=== PATIENT | female | born 1945 | race Caucasian/White ===

== ENCOUNTER 2019-03-23 10:29 | Emergency (ER) | payer MEDICARE ==
[2019-03-23 10:47] VITALS: BP 130/84; RESP 18; TEMP 98
[2019-03-23] MEDS ORDERED: IPRATROPIUM-ALBUTEROL 3 ML NEB INHALATION STA (11:00)
--- NOTE | 2019-03-23 11:09 | ED ---
URI HPI - General Chief Complaint: Upper Respiratory Infection Stated Complaint: chest congestion Time Seen by Provider: 03/23/19 10:48 Source: patient, RN notes reviewed Mode of arrival: ambulatory Limitations: no limitations - History of Present Illness Initial Comments: This a 73-year-old female presents emergency Department chief complaint of congestion. Patient states that she's been sick last 2-3 days. Patient states she primary has sinus congestion but does have productive cough especially at nighttime and in the morning. She has no prior lung disease including COPD or asthma. No chest pain or shortness breath this time. Patient has tried some Mucinex [id number]. Patient denies any known fevers or chills denies any headache, dizziness, neck pain or neck stiffness. No sick contacts. - Related Data Previous Rx's Medication Instructions Recorded Amoxicillin/Potassium Clav 1 tab PO Q12HR #20 tab 03/23/19 [Augmentin 875-125 Tablet] Review of Systems ROS Statement: Those systems with pertinent positive or pertinent negative responses have been documented in the HPI. ROS Other: All systems not noted in ROS Statement are negative. Past Medical History Past Medical History: Hypertension History of Any Multi-Drug Resistant Organisms: None Reported Past Surgical History: Hysterectomy Past Psychological History: No Psychological Hx Reported Smoking Status: Never smoker Past Alcohol Use History: None Reported Past Drug Use History: None Reported General Exam Limitations: no limitations General appearance: alert, in no apparent distress Head exam: Present: atraumatic, normocephalic, normal inspection Eye exam: Present: normal appearance, PERRL, EOMI. Absent: scleral icterus, conjunctival injection, periorbital swelling ENT exam: Present: mucous membranes moist, TM's normal bilaterally, normal external ear exam. Absent: normal oropharynx (Postnasal drainage) Neck exam: Present: normal inspection, full ROM. Absent: tenderness, meningismus, lymphadenopathy Respiratory exam: Present: wheezes. Absent: normal lung sounds bilaterally, respiratory distress, rales, rhonchi, stridor Cardiovascular Exam: Present: regular rate, normal rhythm, normal heart sounds. Absent: systolic murmur, diastolic murmur, rubs, gallop, clicks Neurological exam: Present: alert, oriented X3 Skin exam: Present: warm, dry, intact, normal color. Absent: rash Course Vital Signs 03/23/19 10:43 Temperature 98 F Pulse Rate 100 Respiratory 18 Rate Blood Pressure 130/84 O2 Sat by Pulse 100 Oximetry Medical Decision Making - Medical Decision Making 73-year-old female presented for cough congestion chest x-ray does not show any evidence of pneumonia. Patient's we discharged with antibiotics she'll continue [id number] cough and cold medications will follow-up PCP in 24 hours and return for any worsening symptoms. Patient discharged in stable condition. Disposition Clinical Impression: Sinusitis, Bronchitis Disposition: HOME SELF-CARE Condition: Stable Instructions (If sedation given, give patient instructions): Upper Respiratory Infection (ED) Additional Instructions: Please return to the Emergency Department if symptoms worsen or any other concerns. Prescriptions: Amoxicillin/Potassium Clav [Augmentin 875-125 Tablet] 1 tab PO Q12HR #20 tab Is patient prescribed a controlled substance at d/c from ED?: No Referrals: Frandy Muro MD [Primary Care Provider] - 1-2 days Time of Disposition: 11:52
--- NOTE | 2019-03-23 11:40 | XR ---
EXAMINATION TYPE: XR chest 2V DATE OF EXAM: 03/23/2019 COMPARISON: NONE HISTORY: Cough and congestion TECHNIQUE: Frontal and lateral views of the chest are obtained. FINDINGS: There is no focal air space opacity, pleural effusion, or pneumothorax seen. Left basilar atelectasis is seen that is platelike horizontally oriented along the left heart border. The cardiac silhouette size is within normal limits. The osseous structures are intact. Mild multilevel degene rative disc disease of the thoracic spine. IMPRESSION: Left basilar subsegmental atelectasis otherwise no acute cardiopulmonary process.
[2019-03-23] MEDS ORDERED: cefTRIAXone 1,000 MG VIAL (IM USE) IM STA (11:50)
[2019-03-23 11:55] VITALS: PULSE 88
[2019-03-23] MEDS ORDERED: LIDOCAINE 1% INJ 10MG/ML (20 ML MDV) SQ ONE (12:06)
== END 2019-03-23 12:31 | disposition home or self-care (01) ==
LOC: EC 10:29
DX: J40 Bronchitis, not specified as acute or chronic (principal); J32.9 Chronic sinusitis, unspecified; I10 Essential (primary) hypertension
CPT/HCPCS: 94640; 71046; 99283; 96372; J2001; J0696

== ENCOUNTER → 2019-04-06 | Outpatient (CLI) | payer MEDICARE ==
--- NOTE | 2019-04-06 16:37 | BD ---
EXAMINATION TYPE: Axial Bone Density DATE OF EXAM: 04/06/2019 COMPARISON: 01/24/2004 CLINICAL HISTORY: 73-year-old female postmenopausal screening, osteoporosis Height: 62 IN Weight: 134 LBS FRAX RISK QUESTIONS: Secondary Osteoporosis: 3. Menopause before 45: TOTAL HYST AGE 29 RISK FACTORS HISTORY OF: Active: YES Postmenopausal woman: TOTAL HYST AGE 29 Take estrogen and/or progesterone medications: NOT NOW How long: CONTROL 5 YEARS; TOOK HORMONES FROM AGE [age] MEDICATIONS: Osteoporosis Medications: YES Which medication: Actonel How Lon YEARS Additional Medications: CALCIUM, VIT D, ASPIRIN, ALENDRONATE SODIUM, QUINAPRIL, RED YEAST RICE, ALEVE , FISH OIL, VIT E, ATORVASTATIN, FLUCONAZOLE, EXAM MEASUREMENTS: Bone mineral densitometry was performed using the [employer] System. Bone mineral density as measured about the Lumbar spine is: ----- L1-L4(G/cm2): 1.049 T Score Values are as follows: ----- L2: -1.2 ----- L3: -0.9 ----- L4: -1.2 ----- L1-L4: -1.1 Bone mineral density has: Decreased -7.8% since study of: 01/24/2004 Bone mineral density about the R hip (g/cm2): 0.713 Bone mineral density about the L hip (g/cm2): 0.724 T Score values are as follows: -----R Neck: -2.3 -----L Neck: -2.3 -----R Total: -1.3 -----L Total: -1.3 Bone mineral density has: Decreased -8.3% since study of: 01/24/2004 IMPRESSION: Osteopenia (T Score between -2.5 and -1). There is slightly increased risk of fracture and the patient may be considered for treatment. Re-Screen 2-5 years. NOTE: T-SCORE=SD OF THE YOUNG ADULT MEAN.
== END | disposition home or self-care (01) ==
LOC: RADBDWWP 07:16
PROVIDERS: ATTEND Internal Medicine Geriatric Medicine
DX: M85.80 Other specified disorders of bone density and structure, unspecified site (principal)
CPT/HCPCS: 77080

== ENCOUNTER → 2019-06-12 | Outpatient (CLI) | payer MEDICARE ==
--- NOTE | 2019-06-12 13:30 | XR ---
EXAMINATION TYPE: XR lumbar spine 2 or 3V DATE OF EXAM: 06/12/2019 Comparison: None Clinical History: 73-year-old female M54.5 low back pain Findings: Gentle rotary levoconvex curvature. Moderate to severe degenerative disc disease L4-L5 and L5-S1. Hyp ertrophic facet arthropathy mid to lower lumbar spine. Grade 1 anterolisthesis L5-S1. Vertebral body heights are preserved. Impression: 1. Hypertrophic facet arthropathy. Grade 1 anterolisthesis at L5-S1 likely on a degenerative basis. 2. Moderate to severe degenerative disc disease lower lumbar spine.
== END | disposition home or self-care (01) ==
LOC: RADXRMAIN 12:14
PROVIDERS: ATTEND Nurse Practitioner Family
DX: M43.17 Spondylolisthesis, lumbosacral region (principal); M51.36 Other intervertebral disc degeneration, lumbar region; M46.96 Unspecified inflammatory spondylopathy, lumbar region
CPT/HCPCS: 72100

== ENCOUNTER → 2020-12-03 | Outpatient (CLI) | payer MEDICARE ==
--- NOTE | 2020-12-03 12:03 | XR ---
EXAMINATION TYPE: XR Hip Complete RT DATE OF EXAM: 12/03/2020 CLINICAL HISTORY: Hip pain TECHNIQUE: AP and frogleg views of the right hip are obtained. COMPARISON: None. FINDINGS: There is no acute fracture/dislocation evident in the right hip. The joint space in the r ight hip demonstrates mild degenerative spurring, with superolateral joint space loss and subchondral sclerosis/cystic change The overlying soft tissue appears unremarkable. IMPRESSION: There is no acute fracture or dislocation in the right hip.
== END | disposition home or self-care (01) ==
LOC: RADXRMAIN 11:38
PROVIDERS: ATTEND Nurse Practitioner Family
DX: M25.851 Other specified joint disorders, right hip (principal)
CPT/HCPCS: 73502

== ENCOUNTER → 2021-12-21 | Outpatient (CLI) | payer MEDICARE ==
--- NOTE | 2021-12-21 19:11 | BD ---
EXAMINATION TYPE: Axial Bone Density DATE OF EXAM: 12/21/2021 COMPARISON: NONE CLINICAL HISTORY: 76 years year old Female. ICD-10 CODE: M81.0 Osteoporosis Height: 62 Weight: 142 FRAX RISK QUESTIONS: Alcohol (3 or more units per day): NO Family History (Parent hip fracture): NO Glucocorticoids (More than 3mos): NO History of Fracture in Adulthood: NO Secondary Osteoporosis: 1. Type 1 Diabetes: NO 2. Hyperthyroidism: NO 3. Menopause before 45: NO 4. Malnutrition: NO 5. Chronic liver disease: NO Rheumatoid Arthritis: NO Current Tobacco Use: NO RISK FACTORS HISTORY OF: Hip Fracture (Right/Left): NO Spine Fracture: NO History of Wrist Fracture: NO Surgery to Spine/Hip(right/left)/Wrist (right/left): NO Family History of Osteoporosis: NO Active: YES Diet low in dairy products/other sources of calcium: YES Postmenopausal woman: YES Take estrogen and/or progesterone medications: NO Lost more than 2 inches in height since high school: NO Frequent falls: NO Poor Health: NO Hyperparathyroidism: NO Adrenal Insufficiency: NO MEDICATIONS: Prednisone or other steroids: NO Thyroid Medications: NO Osteoporosis Medications: ALENDRONATE WEEKLY How Long: PAST 6 YEARS QUINAPRIL, CHOLESTEROL MEDS, ALENDRONATE, VIT D, CALCIUM, FISH OIL, TUMERIC, MAGNESIUM Additional Medications: EXAM MEASUREMENTS: Bone mineral densitometry was performed using the [employer] System. Bone mineral density as measured about the Lumbar spine is: ----- L1-L4(G/cm2): 1.011 T Score Values are as follows: ----- L1: -1.2 ----- L2: -2.1 ----- L3: -0.6 ----- L4: -1.9 ----- L1-L4: -1.4 Bone mineral density has: decreased 12.6% since study of: 01/24/2004 Bone mineral density about the R hip (g/cm2): 0.703 Bone mineral density about the L hip (g/cm2): 0.707 T Score values are as follows: -----R Neck: -2.4 -----L Neck: -2.4 -----R Total: -1.2 -----L Total: -1.3 Bone mineral density has: decreased 7.3 % since study of: 01/24/2004 FRAX%s: The graph provided illustrates a 18.3% chance for a major osteoporotic fx and a 6.1% chance f or the hips probability for fx in 10 years time. IMPRESSION: Osteopenia (T Score between -2.5 and -1). However, note that measurements are bordering on osteoporos is at both hips. There is slightly increased risk of fracture and the patient may be considered for treatment. Re-Screen 2-5 years. NOTE: T-SCORE=SD OF THE YOUNG ADULT MEAN.
--- NOTE | 2021-12-22 15:24 | MM ---
Reason for Exam: Screening (asymptomatic). Last mammogram was performed 16 year(s) and 2 month(s) ago. Patient History: Menarche at age 11. First Full-Term at age 25. Hysterectomy at age 29. Postmenopausal. Risk Values: Lolita 5 year model risk: 1.9%. NCI Lifetime model risk: 3.4%. Prior Study Comparison: 01/13/2004 Bilateral Diagnostic Mammogram, [facility]. 01/15/2005 Bilateral Screening Mammogram, [facility]. 11/12/2005 Bilateral Diagnostic Mammogram, [facility]. Tissue Density: The breast tissue is heterogeneously dense. This may lower the sensitivity of mammography. Findings: Analyzed By CAD. There is no suspicious group of microcalcifications or new suspicious mass in either breast. Overall Assessment: Negative, BI-RAD 1 Management: Screening Mammogram of both breasts in 1 year. A clinical breast exam by your physician is recommended on an annual basis and results should be correlated with mammographic findings. Electronically signed and approved by: Calixto Huff M.D. Radiologis
== END | disposition home or self-care (01) ==
LOC: RADBDWWP 14:03
PROVIDERS: ATTEND Internal Medicine Geriatric Medicine
DX: Z12.31 Encounter for screening mammogram for malignant neoplasm of breast (principal); M85.88 Other specified disorders of bone density and structure, other site; M85.851 Other specified disorders of bone density and structure, right thigh; M85.852 Other specified disorders of bone density and structure, left thigh; Z78.0 Asymptomatic menopausal state
CPT/HCPCS: 77063; 77067; 77080

== ENCOUNTER → 2023-05-09 | Outpatient (CLI) | payer MEDICARE ==
--- NOTE | 2023-05-09 18:57 | MR ---
EXAMINATION TYPE: MR brain wo/w con DATE OF EXAM: 05/09/2023 COMPARISON: HISTORY: Memory loss CONTRAST: Performed utilizing 6.5 mL intravenous Gadobutrol gadolinium contrast. TECHNIQUE: Multiplanar, multiecho imaging on a 3.0 Vanita magnet is performed through the brain. Stud y is performed within 24 hours of arrival to the hospital. The craniovertebral junction is normal. The pituitary is normal. Diffusion-weighted imaging is performed. No abnormal hyperintensity is present to suggest an acute i ntracranial infarct or acute ischemic change. There are patchy to confluent periventricular white matter ischemic type changes. Some signal changes within the brainstem. No acute signal changes evident . Ventricles and sulci are somewhat prominent for the patient age. No abnormal enhancement is identified. IMPRESSION: 1. Atrophy with chronic appearing periventricular white matter ischemic-type changes.
== END | disposition home or self-care (01) ==
LOC: RADMRIMAIN 15:48
PROVIDERS: ATTEND Internal Medicine Geriatric Medicine
DX: G31.9 Degenerative disease of nervous system, unspecified (principal); G93.89 Other specified disorders of brain
CPT/HCPCS: 70553; A9585

== ENCOUNTER 2024-09-26 09:24 | Inpatient (IN) | payer MEDICARE ==
[2024-09-26 09:31] LABS: Glucose,Whole Blood 94 mg/dL (70-110)
--- NOTE | 2024-09-26 09:31 | ED ---
General Adult HPI - General Stated complaint: stroke-like symptoms Time Seen by Provider: 09/26/24 09:26 Source: patient, EMS, RN notes reviewed Mode of arrival: EMS Limitations: no limitations - History of Present Illness Initial comments: Patient is an 79-year-old female present to the emergency department with concern for left-sided weakness. Onset of symptoms was just before 9 AM. Patient noticed left leg weakness when she tried to get up and walk. Patient was already up in the morning and doing fine prior to this. No confusion. EMS also has concern for left facial and arm weakness. No history of similar symptoms previously. No speech problems. - Related Data Previous Rx's Medication Instructions Recorded Amoxicillin/Potassium Clav 1 tab PO Q12HR #20 tab 03/23/19 [Augmentin 875-125 Tablet] Allergies Allergy/AdvReac Type Severity Reaction Status Date / Time No Known Allergies Allergy Verified 03/23/19 11:51 Review of Systems ROS Statement: Those systems with pertinent positive or pertinent negative responses have been documented in the HPI. ROS Other: All systems not noted in ROS Statement are negative. Constitutional: Denies: fever Eyes: Denies: eye pain ENT: Denies: ear pain Respiratory: Denies: cough Cardiovascular: Denies: chest pain Endocrine: Denies: fatigue Gastrointestinal: Denies: abdominal pain Genitourinary: Denies: dysuria Musculoskeletal: Denies: back pain Past Medical History Past Medical History: Hypertension History of Any Multi-Drug Resistant Organisms: None Reported Past Surgical History: Hysterectomy Past Psychological History: No Psychological Hx Reported Past Alcohol Use History: None Reported Past Drug Use History: None Reported General Exam Limitations: no limitations General appearance: alert, in no apparent distress Head exam: Present: atraumatic Eye exam: Present: normal appearance, PERRL, EOMI ENT exam: Present: normal oropharynx Neck exam: Present: normal inspection Respiratory exam: Present: normal lung sounds bilaterally Cardiovascular Exam: Present: regular rate, normal rhythm GI/Abdominal exam: Present: soft. Absent: tenderness Extremities exam: Present: normal inspection. Absent: pedal edema, calf tenderness Neurological exam: Present: alert Expanded Neurological exam: Present: protecting the airway Patient oriented to: Present: person, place, time Cranial nerves: EOM's Intact: Normal, Facial Sensation: Normal, Facial Palsy with Forehead Movement: Abnormal Left (Left facial weakness that does not affect the forehead) Sensory exam: Upper Extremity Light Touch: Abnormal Left, Lower Extremity Light Touch: Normal Motor strength exam: RUE: 5, LUE: 4, RLE: 5, LLE: 3 Eye Response: (4) open spontaneously Motor Response: (6) obeys commands Verbal Response: (5) oriented Psychiatric exam: Present: normal affect, normal mood Skin exam: Present: normal color Course Vital Signs 09/26/24 09/26/24 09/26/24 09:40 09:45 09:52 Temperature 97.7 F Pulse Rate 78 Respiratory 16 Rate Blood Pressure 193/92 198/104 186/97 O2 Sat by Pulse 97 Oximetry 09/26/24 09/26/24 10:00 10:06 Temperature Pulse Rate Respiratory Rate Blood Pressure 137/80 177/90 O2 Sat by Pulse Oximetry EKG Findings - EKG Results: EKG: interpreted by ERMD, sinus rhythm, normal axis, normal QRS, normal ST/T Medical Decision Making - Medical Decision Making Code thrombolytic was called. NIH 11 reported by nursing staff 9:40 AM Case was discussed with Dr. Bowser who does agree the patient is a candidate for tenecteplase. He does recommend confirming patient not on a blood thinner and labetalol then Cardene if needed to get blood pressure under 180/90. At this time blood pressure is 198/104 and patient will receive labetalol. Long discussion had with patient including risk and benefits and patient would like to receive tenecteplase. Patient understands risks pacifically risks of bleeding making symptoms worse and potentially or worse disability. Patient confirms she is not on blood thinners. CT brain still pending. 9:43 AM. Call from radiologist and CT reviewed with him. No acute abnormality. Patient is a candidate to receive tenecteplase at this time however we do need to recheck blood pressure first. 09:57 of labetalol patient blood pressure 167/80. Tenecteplase will be provided at this time. Was pt. sent in by a medical professional or institution (, PA, INSURANCE ADVISER, urgent care, hospital, or alf...) When possible be specific @ -No Did you speak to anyone other than the patient for history (EMS, parent, family, police, friend...)? What history was obtained from this source @ -EMS provides history including onset of symptoms Did you review nursing and triage notes (agree or disagree)? Why? @ -I reviewed and agree with nursing and triage notes Were old charts reviewed (outside hosp., previous admission, EMS record, old EKG, old radiological studies, urgent care reports/EKG's, alf records)? Report findings @ -No old charts were reviewed Differential Diagnosis (chest pain, altered mental status, abdominal pain women, abdominal pain men, vaginal bleeding, weakness, fever, dyspnea, syncope, headache, dizziness, GI bleed, back pain, seizure, CVA, palpatations, mental health, musculoskeletal)? @ -Differential Weakness: Hypoglycemia, shock, sepsis, hyponatremia, anemia, infection, [place], ETOH, adverse medicine reaction, overdose, stroke, this is not meant to be an all-inclusive list. EKG interpreted by me (3pts min.). @ -As above X-rays interpreted by me (1pt min.). @ -Chest x-ray without acute abnormality CT interpreted by me (1pt min.). @ -CT brain without acute abnormality U/S interpreted by me (1pt. min.). @ -None done What testing was considered but not performed or refused? (CT, X-rays, U/S, labs)? Why? @ -None What meds were considered but not given or refused? Why? @ -None Did you discuss the management of the patient with other professionals (professionals i.e. , PA, INSURANCE ADVISER, lab, RT, psych nurse, clinical social worker, loom mechanic, teacher, patient transport officer, child welfare caseworker)? Give summary @ -See above, case also discussed with Dr. Locke who will admit covering Dr. Bernal Was smoking cessation discussed for >3mins.? @ -No Was critical care preformed (if so, how long)? @ -45 minutes critical care time Were there social determinants of health that impacted care today? How? (Homelessness, low income, unemployed, alcoholism, drug addiction, transportation, low edu. Level, literacy, decrease access to med. care, [place] [facility], rehab)? @ -No Was there de-escalation of care discussed even if they declined (Discuss DNR or withdrawal of care, Hospice)? DNR status @ -No What co-morbidities impacted this encounter? (DM, HTN, Smoking, COPD, CAD, Cancer, CVA, ARF, Chemo, Hep., AIDS, mental health diagnosis, sleep apnea, morbid obesity)? @ -Hypertension Was patient admitted / discharged? Hospital course, mention meds given and rout e, prescriptions, significant lab abnormalities, going to OR and other pertinent info. @ -Patient presents with acute stroke. Patient given tenecteplase. Head CT unremarkable. Patient will be admitted with ICU. Dr. Muhammad also paged for consult. Patient reevaluated and unchanged. Patient is updated. Admission orders written Undiagnosed new problem with uncertain prognosis? @ -No Drug Therapy requiring intensive monitoring for toxicity (Heparin, Nitro, Insulin, Cardizem)? @ -Tenecteplase Were any procedures done? @ -No Diagnosis/symptom? @ -CVA Acute, or Chronic, or Acute on Chronic? @ -Acute Uncomplicated (without systemic symptoms) or Complicated (systemic symptoms)? @ -Default Side effects of treatment? @ -No Exacerbation, Progression, or Severe Exacerbation? @ -No Poses a threat to life or bodily function? How? (Chest pain, [place], [place], pneumonia, PE, COPD, DKA, ARF, appy, cholecystitis, CVA, Diverticulitis, Homicidal, Suicidal, threat to staff... and all critical care pts) @ -Threat to neurological function - Lab Data Result diagrams: 09/26/24 09:51 Lab Results 09/26/24 09/26/24 Range/Units 09:29 09:51 WBC 6.78 (4.50-10.00) 10*3/uL RBC 3.95 L (4.10-5.20) 10*6/uL Hgb 12.4 (12.0-15.0) g/dL Hct 37.5 (37.2-46.3) % MCV 94.9 (80.0-97.0) fL MCH 31.4 (27.0-32.0) pg MCHC 33.1 (32.0-37.0) g/dL Plt Count 237 (140-440) 10*3/uL MPV 10.4 (9.5-12.2) fL Immature Gran % (Auto) 0.3 % Neutrophils % 62.7 % Lymphocytes % 25.2 % Monocytes % 9.9 % Eosinophils % 1.3 % Basophils % 0.6 % Immature Gran # 0.02 (0.00-0.04) 10*3/uL Neutrophils # 4.25 (1.80-7.70) 10*3/uL Lymphocytes # 1.71 (0.90-5.00) 10*3/uL Monocytes # 0.67 (0.20-1.00) 10*3/uL Eosinophils # 0.09 (0.04-0.35) 10*3/uL Basophils # 0.04 (0.00-0.10) 10*3/uL POC Glucose (mg/dL) 94 (70-110) mg/dL POC Glu Trimming Inspector ID Baltazar July Critical Care Time Critical Care Time: Yes Disposition Clinical Impression: Cerebrovascular accident (CVA) Disposition: ADMITTED IP TO THIS [facility] Condition: Critical Is patient prescribed a controlled substance at d/c from ED?: No Referrals: Frandy Muro MD [Primary Care Provider] - 1-2 days Time of Disposition: 10:19
--- NOTE | 2024-09-26 09:46 | CT ---
EXAMINATION TYPE: CT brain wo con DATE OF EXAM: 09/26/2024 9:38 AM COMPARISON: None. CLINICAL INDICATION: Female, 79 years old with history of Neuro deficit, acute, stroke suspected, str mayela TECHNIQUE: Brain: Axial CT images of the brain were obtained with coronal and sagittal reformats created and rev iewed. Contrast used: None. Oral contrast used: None. CT DLP: 1102.2 mGycm, Automated exposure control for dose reduction was used. FINDINGS: Brain: Extra-axial spaces: No abnormal extra-axial fluid collections. Ventricular system: Dilatation in proportion to cerebral atrophy. Cerebral parenchyma: Cerebral atrophy. No acute intraparenchymal hemorrhage or mass effect. The sandoval -white junction is well differentiated. Scattered hypoattenuating areas are seen within the white mat ter. Cerebellum: Unremarkable. Mass effect: No evidence of midline shift. Intracranial vasculature: Atherosclerotic calcifications of the intracranial vessels. Soft tissues: Normal. Calvarium/osseous structures: No depressed skull fracture. Paranasal sinuses and mastoid air cells: Mild scattered paranasal sinus disease. Visualized orbits: Orbital contents are intact. IMPRESSION: 1. No acute intracranial process. 2. Nonspecific white matter changes, likely secondary to chronic small vessel ischemic disease. Findings communicated to Rafal Mckeon DO on 09/26/2024 9:[address] Jaylen Wu. [facility], , 09/26/2024 9:43 AM
[2024-09-26] MEDS: LABETALOL 5 MG/ML VIAL MDV IVP STA (09:50)
[2024-09-26 10:01] LABS: Basophils # (A) 0.04 10*3/uL (0.00-0.10); Basophils % (A) 0.6 %; Eosinophils # (A) 0.09 10*3/uL (0.04-0.35); Eosinophils % (A) 1.3 %; HCT 37.5 % (37.2-46.3); HGB 12.4 g/dL (12.0-15.0); Lymphocytes # (A) 1.71 10*3/uL (0.90-5.00); Lymphocytes % (A) 25.2 %; MCH 31.4 pg (27.0-32.0); MCHC 33.1 g/dL (32.0-37.0); MCV 94.9 fL (80.0-97.0); Mean Platelet Volume 10.4 fL (9.5-12.2); Monocytes # (A) 0.67 10*3/uL (0.20-1.00); Monocytes % (A) 9.9 %; Neutrophils # (A) 4.25 10*3/uL (1.80-7.70); Neutrophils % (A) 62.7 %; Platelet Count 237 10*3/uL (140-440); RBC 3.95 10*6/uL (4.10-5.20); RDW 12.9 % (11.5-14.5); WBC 6.78 10*3/uL (4.50-10.00)
[2024-09-26] MEDS: T.ENECTEPLASE 5 MG/ML VIAL IVP STA (10:02)
--- NOTE | 2024-09-26 10:17 | CT ---
EXAMINATION TYPE: CT angio head neck DATE OF EXAM: 09/26/2024 9:53 AM COMPARISON: CT brain. CLINICAL INDICATION: Female, 79 years old with history of Neuro deficit, acute, stroke suspected; PHH , stroke TECHNIQUE: Axially acquired helical CT angiogram of the head and neck was obtained with contrast. Axi al images are supplemented with 3D reconstructions and MIP images which were post-processed at an in dependent workstation. NASCET criteria used. Contrast used:65 mL of Isovue 370 with IV Contrast, Oral contrast used: None. CT DLP: 304.4 mGycm, Automated exposure control for dose reduction was used. FINDINGS: CTA HEAD: No evidence of acute intracranial hemorrhage, mass effect, or midline shift. The ventricles, sulci, a nd cisterns are unremarkable. Vertebral arteries: The vertebral arteries are patent. Vertebral artery dominance: Codominant Basilar artery: The basilar artery is intact. The basilar artery bifurcation is normal. Internal Carotid arteries: The cervical, petrous, cavernous and supraclinoid segments are normal. CORY: Patent with no evidence of aneurysm. ACOM: Present without evidence of aneurysm. MCA: Patent with no evidence of aneurysm. A/C TECHNICIAN: Patent with no evidence of aneurysm. PCOM: Hypoplastic bilaterally. Dural sinuses: Patent. CTA NECK: Right Carotid System: The common carotid and external carotid arteries are patent. There is less than 25% stenosis at the c arotid bifurcation secondary to calcified/noncalcified plaque. The rest of the internal carotid arter y is patent. Left Carotid System: The common carotid artery and external carotid artery are patent. The carotid bifurcation demonstrate s no evidence of hemodynamically significant stenosis. The remaining portions of the internal carotid artery demonstrate normal size without significant narrowing. Vertebral arteries are patent without evidence hemodynamically significant stenosis. There is a three-vessel aortic arch. The origins of the great vessels are patent. No evidence of hemo dynamically significant stenosis. Upper thorax: 12 mm right thyroid nodule. IMPRESSION: 1. No evidence of dissection of the cervical internal carotid arteries or vertebral arteries. 2. No any evidence of significant stenosis at the carotid bifurcations. 3. No evidence of intracranial high-grade stenosis or intracranial aneurysm. [facility], , 09/26/2024 10:15 AM
[2024-09-26 10:22] LABS: ALT 13 U/L (4-34); AST 18 U/L (14-36); African American GFR (CKD) 83 (>60 ml/min/1.73 sqM); Albumin 3.8 g/dL (3.5-5.0); Alkaline Phosphatase 47 U/L (38-126); Anion Gap 7 mmol/L; Blood Urea Nitrogen 27 mg/dL (7-17); Calcium 8.8 mg/dL (8.4-10.2); Carbon Dioxide 23 mmol/L (22-30); Chloride 108 mmol/L (98-107); Creatine Kinase 50 U/L (30-135); Glucose 102 mg/dL (74-99); Non-African American GFR(CKD) 72 (>60 ml/min/1.73 sqM); Potassium 3.9 mmol/L (3.5-5.1); Sodium 138 mmol/L (137-145); Total Bilirubin 0.6 mg/dL (0.2-1.3); Total Protein 5.8 g/dL (6.3-8.2)
--- NOTE | 2024-09-26 10:26 | XR ---
EXAMINATION TYPE: XR chest 1V portable DATE OF EXAM: 09/26/2024 10:12 AM COMPARISON: Chest radiographs from 03/23/2019 CLINICAL INDICATION: Female, 79 years old with history of altered mental status; [facility] TECHNIQUE: XR chest 1V portable Frontal view of the chest. FINDINGS: Lungs/Pleura: There is no evidence of pleural effusion, focal consolidation, or pneumothorax. Pulmonary vascularity: Unremarkable. Heart/mediastinum: Cardiomediastinal silhouette is unremarkable. Musculoskeletal: No acute osseous pathology. Other findings: None IMPRESSION: No acute cardiopulmonary disease/process. [facility], , 09/26/2024 10:23 AM
[2024-09-26 10:27] LABS: Partial Thromboplastin Time 22.6 sec (22.0-30.0); Prothrombin Time 11.4 sec (10.0-12.5)
--- NOTE | 2024-09-26 12:00 | P.HPIM ---
History of Present Illness H&P Date: 08/29/75 this is a pleasant 79 yo female with past medical history of multiple medical problems as below Presents because of acute left-sided weakness and possible left facial drop in the emergency room. Her legs was more weak than the left arm, she can barely move her leg of her bed Code stroke was called and patient received tPA in the emergency room. This followed by improvement in her weakness. Currently denies any headache or dizziness no chest pain or dyspnea no GI/ symptom She denies smoking alcohol or illicit drugs Hemodynamically stable Labs including CV CBC and BMP were unremarkable. Liver enzymes normal. Blood pressure slightly elevated 177/90 CT of the brain is negative for acute process chest x-ray is showing no acute process. Review of Systems Review of systems CONSTITUTIONAL: No fever, no malaise, no fatigue. HEENT: No recent visual problems or hearing problems. Denied any sore throat. CARDIOVASCULAR: No orthopnea, PND, no palpitations, no syncope. PULMONARY: No shortness of breath, no cough, no hemoptysis. GASTROINTESTINAL: No diarrhea, no nausea, no vomiting, no abdominal pain. Normoactive bowel sounds. NEUROLOGICAL: No headaches, no weakness, no numbness. HEMATOLOGICAL: Denies any bleeding or petechiae. GENITOURINARY: Denies any burning micturition, frequency, or urgency. MUSCULOSKELETAL/RHEUMATOLOGICAL: Denies any joint pain, swelling, or any muscle pain. ENDOCRINE: Denies any polyuria or polydipsia. Past Medical History Past Medical History: Hypertension History of Any Multi-Drug Resistant Organisms: None Reported Past Surgical History: Hysterectomy Past Psychological History: No Psychological Hx Reported Past Alcohol Use History: None Reported Past Drug Use History: None Reported Medications and Allergies Home Medications Medication Instructions Recorded Confirmed Type Alendronate Sodium 70 mg PO MO 09/26/24 09/26/24 History Ascorbic Acid [Vitamin C] 1,000 mg PO DAILY 09/26/24 09/26/24 History Aspirin EC [Ecotrin Low Dose] 81 mg PO HS 09/26/24 09/26/24 History Atorvastatin [Lipitor] 10 mg PO DAILY 09/26/24 09/26/24 History Cholecalciferol (Vitamin D3) 50 mcg PO DAILY 09/26/24 09/26/24 History [Vitamin D3 (50 Mcg = 2000 Iu)] Cyanocobalamin (Vitamin B-12) 1,000 mcg PO DAILY 09/26/24 09/26/24 History [Vitamin B-12] Magnesium 250 mg PO DAILY 09/26/24 09/26/24 History Memantine [Namenda] 5 mg PO DAILY 09/26/24 09/26/24 History Naproxen Sodium [Aleve] 220 mg PO HS 09/26/24 09/26/24 History Bernard-3/Dha/Epa/Fish Oil [Fish Oil 1 cap PO DAILY 09/26/24 09/26/24 History 1,000 mg Softgel] Red Yeast Rice 600 mg PO DAILY 09/26/24 09/26/24 History Rosuvastatin [Crestor] 10 mg PO DAILY 09/26/24 09/26/24 History Vitamin E (Dl,Tocopheryl Acet) 400 unit PO DAILY 09/26/24 09/26/24 History [Vitamin E (400 Iu = 180 mg)] lisinopriL [Zestril] 20 mg PO BID 09/26/24 09/26/24 History traZODone HCL [Desyrel] 50 mg PO HS 09/26/24 09/26/24 History Allergies Allergy/AdvReac Type Severity Reaction Status Date / Time No Known Allergies Allergy Verified 09/26/24 11:03 Physical Exam Vitals: Vital Signs Temp Pulse Resp BP Pulse Ox 09/26/24 11:26 60 18 195/98 99 09/26/24 10:45 55 L 10 L 162/94 98 09/26/24 10:30 61 25 H 177/72 90 L 09/26/24 10:15 57 L 30 H 177/90 96 09/26/24 10:06 177/90 09/26/24 10:00 67 167/80 98 09/26/24 09:52 186/97 09/26/24 09:45 97.7 F 78 16 198/104 97 09/26/24 09:40 193/92 Intake and Output 09/25/24 09/26/24 09/26/24 22:59 06:59 14:59 Other: Weight 54.431 kg GENERAL: The patient is alert and oriented x3, not in any acute distress. Well developed, well nourished. HEENT: Pupils are round and equally reacting to light. EOMI. No scleral icterus. No conjunctival pallor. Normocephalic, atraumatic. No pharyngeal erythema. No thyromegaly. CARDIOVASCULAR: S1 and S2 present. No murmurs, rubs, or gallops. PULMONARY: Chest is clear to auscultation, no wheezing , no crackles. ABDOMEN: Soft, nontender, nondistended, normoactive bowel sounds. No palpable organomegaly. MUSCULOSKELETAL: No joint swelling or deformity. EXTREMITIES: No cyanosis, clubbing, or pedal edema. -NEUROLOGICAL: Shala cranial nerves are grossly intact,. Mild Left side weakness SKIN: No rashes. no petechiae. Results CBC & Chem 7: 09/26/24 09:51 09/26/24 09:51 Labs: Abnormal Lab Results - Last 24 Hours (Table) 09/26/24 09/26/24 Range/Units 09:51 09:51 RBC 3.95 L (4.10-5.20) 10*6/uL Chloride 108 H (98-107) mmol/L BUN 27 H (7-17) mg/dL Glucose 102 H (74-99) mg/dL Total Protein 5.8 L (6.3-8.2) g/dL Assessment and Plan Assessment: Acute stroke with acute left hemiparesis and left facial droop s/p tPA, showing improvement Permissive hypertension Plan: Continue with Lipitor Hold anticoagulation because received tPA Admit to the ICU for close monitoring Neurology team consult and critical care team consult Continue with labetalol. Labs and medication were reviewed.. Continue same treatment. Continue with symptomatic treatment. Resume home medication. Monitor labs and vitals. DVT and GI prophylaxis. Further recommendations as per clinical course of the patient DVT prophylaxis: Mechanical GI Prophylaxis: Pepcid PT/OT: Pending Prognosis is guarded
[2024-09-26] MEDS: niCARdipine 20 MG in SODIUM CHLORIDE 0.9% 192 ML IV SCH (12:02)
--- NOTE | 2024-09-26 12:15 | P.CNNES ---
History of Present Illness Consult date: 09/26/24 Reason for Consult: Ischemic stroke History of Present Illness: The patient is an 79-year-old female who is seen in neurologic consultation on September 26, 2024, in collaboration with Bethany Awan, via teleneurology. History is obtained from the patient as well as review of the chart. Patient reports that she had sudden onset of left lower extremity weakness, this morning, she said she was fine when she got out of bed in the morning however, later in the morning she had sudden onset of left lower extremity weakness. She also noted weakness in her left upper extremity as well as facial weakness. The patient denies headache. She reports numbness and tingling primarily involving her arm and leg however with speaking to less, patient also was noting numbness in her face. According to the nurse who was present at the bedside, prior to receiving TNK, patient also had some slurring of her speech. The patient's initial NIH stroke scale score was reported to be 11. CT scan of the brain was performed in the emergency department. There is no reported evidence of acute hemorrhage or infarct. CT angiogram of the head and neck is negative for acute, stenosis and large vessel occlusion. The patient denies a history of stroke or TIA. She does reportedly take aspirin 81 mg daily. She also takes a statin. Past Medical History Past Medical History: Hypertension History of Any Multi-Drug Resistant Organisms: None Reported Past Surgical History: Hysterectomy Past Psychological History: No Psychological Hx Reported Past Alcohol Use History: None Reported Past Drug Use History: None Reported Medications and Allergies Home Medications Medication Instructions Recorded Confirmed Type Alendronate Sodium 70 mg PO MO 09/26/24 09/26/24 History Ascorbic Acid [Vitamin C] 1,000 mg PO DAILY 09/26/24 09/26/24 History Aspirin EC [Ecotrin Low Dose] 81 mg PO HS 09/26/24 09/26/24 History Atorvastatin [Lipitor] 10 mg PO DAILY 09/26/24 09/26/24 History Cholecalciferol (Vitamin D3) 50 mcg PO DAILY 09/26/24 09/26/24 History [Vitamin D3 (50 Mcg = 2000 Iu)] Cyanocobalamin (Vitamin B-12) 1,000 mcg PO DAILY 09/26/24 09/26/24 History [Vitamin B-12] Magnesium 250 mg PO DAILY 09/26/24 09/26/24 History Memantine [Namenda] 5 mg PO DAILY 09/26/24 09/26/24 History Naproxen Sodium [Aleve] 220 mg PO HS 09/26/24 09/26/24 History Elmer-3/Dha/Epa/Fish Oil [Fish Oil 1 cap PO DAILY 09/26/24 09/26/24 History 1,000 mg Softgel] Red Yeast Rice 600 mg PO DAILY 09/26/24 09/26/24 History Rosuvastatin [Crestor] 10 mg PO DAILY 09/26/24 09/26/24 History Vitamin E (Dl,Tocopheryl Acet) 400 unit PO DAILY 09/26/24 09/26/24 History [Vitamin E (400 Iu = 180 mg)] lisinopriL [Zestril] 20 mg PO BID 09/26/24 09/26/24 History traZODone HCL [Desyrel] 50 mg PO HS 09/26/24 09/26/24 History Allergies Allergy/AdvReac Type Severity Reaction Status Date / Time No Known Allergies Allergy Verified 09/26/24 11:03 Physical Examination - Vital Signs Vital Signs: Vital Signs Temp Pulse Resp BP Pulse Ox 09/26/24 11:26 60 18 195/98 99 09/26/24 10:45 55 L 10 L 162/94 98 09/26/24 10:30 61 25 H 177/72 90 L 09/26/24 10:15 57 L 30 H 177/90 96 09/26/24 10:06 177/90 09/26/24 10:00 67 167/80 98 09/26/24 09:52 186/97 09/26/24 09:45 97.7 F 78 16 198/104 97 09/26/24 09:40 193/92 Intake and Output 09/25/24 09/26/24 09/26/24 22:59 06:59 14:59 Other: Weight 54.431 kg General: The patient is well-nourished, well-developed and in no acute distress HEENT: Head is atraumatic, normocephalic. Fundus not visualized. There is no scleral icterus. Mucous membranes are moist. Neck: Supple without carotid bruits Heart: Regular rate and rhythm Lungs: There is no cough or shortness of breath Extremities: Without edema Neurological examination Mental status: The patient is awake, alert and oriented x 3. Speech is clear. There is no dysarthria or aphasia. Patient is able to accurately name objects and repeat phrases. Cranial nerves: Pupils are equal at 2 mm and reactive. Visual camacho are full to confrontation. Extraocular movements are intact. There is nystagmus on right lateral gaze. Facial sensation is diminished in the left V2 distribution. There is facial droop.. Hearing is grossly intact. Uvula and palate are midline. Shoulder shrug is symmetric. Tongue protrudes midline. Motor: Strength is 5/5 in the right upper and lower extremities. Left upper extremity strength 4/5. Left hip flexor 3/5. Left ankle plantar and dorsi flexors 4/5. Sensory: There is tenderness sensation to light touch involving the left upper and lower extremities. There is no extinction with double simultaneous stimulation. Deep tendon reflexes: 3+/4+ in the bilateral upper extremities and 2+/4+ at the knees. Coordination: [id number] and rapid alternating movements are intact on the right. There is left-sided slowing of rapid alternating movements as well as ataxia with [id number] testing. There is no pronator drift. [id number]-[id number] testing is diminished on the left, secondary to weakness. Gait: Not assessed Results CT scan of the brain imaging has been personally viewed. I agree with the radiology report. - Laboratory Findings CBC and BMP: 09/26/24 09:51 09/26/24 09:51 Abnormal Lab Findings: Abnormal Labs 09/26/24 09/26/24 09:51 09:51 RBC 3.95 L Chloride 108 H BUN 27 H Glucose 102 H Total Protein 5.8 L Assessment and Plan Assessment: 1. 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 History of hypertension 3. History of dementia, on Namenda Plan: 1. Stroke order set for status post TNK patient's has been entered by the primary team, including a repeat CT scan of the brain, 24 hours following TNK 2. MRI of the brain has been ordered to further evaluate for ischemia 3. Antiplatelet agents should not be started, including aspirin, until 24 hours after TNK and head CT negative for hemorrhage 4. After 24 hours, the patient should be on dual antiplatelet therapy consisting of aspirin 81 mg and Plavix 75 mg daily, for 21 days, thereafter the patient should be continued on Plavix 5. High intensity statin should be initiated 6. Monitor for signs of depression, as the patient is already very tearful and depression is, and right hemispheric strokes Thank you for allowing us to participate in care of this patient Time with Patient: Greater than 30 (65 minutes were spent caring for this patient today including, obtaining history, examining the patient, reviewing imaging, chart documentation, labs, placing orders and creating this note)
--- NOTE | 2024-09-26 13:01 | P.CNPUL ---
History of Present Illness Consult date: 09/26/24 Requesting physician: Qamar Morfin Reason for consult: other (ICU management) Chief complaint: Left lower extremity weakness and left facial numbness History of present illness: This is an 79-year-old female known history of hypertension, dyslipidemia, patient was brought into the ER this morning with sudden onset of left lower extremity weakness, went on to develop left facial numbness and left upper extremity weakness but she had no headache, no nausea no vomiting, she felt numbness and tingling in her left arm and her left leg. Patient was seen in the ER and she was felt to have an acute ischemic stroke. Workup was basically nondiagnostic and there was no evidence of hemorrhage or infarct on the CT of the brain. Her CT angiogram of the head and neck was negative for acute sten osis or large vessel occlusion. Patient received TNK, and as per protocol I was asked to see the patient to admit the patient to the ICU. By the time I saw the patient, she was already feeling better her weakness in the left upper extremity and left lower extremity was getting much better and her numbness in the left facial numbness was also improved. Patient has no neurological symptoms during my evaluation. WBC count 6.7 hemoglobin 12.4 electrolytes are normal renal profile is normal. Review of Systems CONSTITUTIONAL: Negative HEENT: Left facial numbness CARDIOVASCULAR: No orthopnea, PND, no palpitations, no syncope. PULMONARY: Negative GASTROINTESTINAL: No diarrhea, no nausea, no vomiting, no abdominal pain. Normoactive bowel sounds. . HEMATOLOGICAL: Denies any bleeding or petechiae. GENITOURINARY: Denies any burning micturition, frequency, or urgency. MUSCULOSKELETAL/RHEUMATOLOGICAL: Denies any joint pain, swelling, or any muscle pain. ENDOCRINE: Denies any polyuria or polydipsia. Neurologic: As noted in HPI Past Medical History Past Medical History: Hypertension History of Any Multi-Drug Resistant Organisms: None Reported Past Surgical History: Hysterectomy Past Psychological History: No Psychological Hx Reported Past Alcohol Use History: None Reported Past Drug Use History: None Reported Medications and Allergies Home Medications Medication Instructions Recorded Confirmed Type Alendronate Sodium 70 mg PO MO 09/26/24 09/26/24 History Ascorbic Acid [Vitamin C] 1,000 mg PO DAILY 09/26/24 09/26/24 History Aspirin EC [Ecotrin Low Dose] 81 mg PO HS 09/26/24 09/26/24 History Atorvastatin [Lipitor] 10 mg PO DAILY 09/26/24 09/26/24 History Cholecalciferol (Vitamin D3) 50 mcg PO DAILY 09/26/24 09/26/24 History [Vitamin D3 (50 Mcg = 2000 Iu)] Cyanocobalamin (Vitamin B-12) 1,000 mcg PO DAILY 09/26/24 09/26/24 History [Vitamin B-12] Magnesium 250 mg PO DAILY 09/26/24 09/26/24 History Memantine [Namenda] 5 mg PO DAILY 09/26/24 09/26/24 History Naproxen Sodium [Aleve] 220 mg PO HS 09/26/24 09/26/24 History Bushnell-3/Dha/Epa/Fish Oil [Fish Oil 1 cap PO DAILY 09/26/24 09/26/24 History 1,000 mg Softgel] Red Yeast Rice 600 mg PO DAILY 09/26/24 09/26/24 History Rosuvastatin [Crestor] 10 mg PO DAILY 09/26/24 09/26/24 History Vitamin E (Dl,Tocopheryl Acet) 400 unit PO DAILY 09/26/24 09/26/24 History [Vitamin E (400 Iu = 180 mg)] lisinopriL [Zestril] 20 mg PO BID 09/26/24 09/26/24 History traZODone HCL [Desyrel] 50 mg PO HS 09/26/24 09/26/24 History Allergies Allergy/AdvReac Type Severity Reaction Status Date / Time No Known Allergies Allergy Verified 09/26/24 11:03 Physical Exam Vitals: Vital Signs Temp Pulse Resp BP Pulse Ox 09/26/24 11:48 82 189/97 09/26/24 11:37 60 189/93 98 09/26/24 11:26 60 18 195/98 99 09/26/24 10:45 55 L 10 L 162/94 98 09/26/24 10:30 61 25 H 177/72 90 L 09/26/24 10:15 57 L 30 H 177/90 96 09/26/24 10:06 177/90 09/26/24 10:00 67 167/80 98 09/26/24 09:52 186/97 09/26/24 09:45 97.7 F 78 16 198/104 97 09/26/24 09:40 193/92 Intake and Output 09/25/24 09/26/24 09/26/24 22:59 06:59 14:59 Intake Total 35 Balance 35 Intake: Intake, IV Titration 35 Amount niCARdipine 20 mg In 35 Sodium Chloride 0.9% 192 ml @ 5 MG/HR 50 mls/hr IV .Q4H [facility] Rx#:[id number] Other: Weight 54.431 kg GENERAL: Revealed a very pleasant 79-year-old female in no distress on room air not in any distress HEENT: Pupils are round and equally reacting to light. EOMI. No scleral icterus. No conjunctival pallor. Normocephalic, atraumatic. No pharyngeal erythema. No thyromegaly. CARDIOVASCULAR: Normal S1-S2, no S3 gallop. PULMONARY: Clear bilaterally no crackles rhonchi or wheezes ABDOMEN: Soft, nontender, nondistended, normoactive bowel sounds. No palpable organomegaly. MUSCULOSKELETAL: No joint swelling or deformity. EXTREMITIES: No cyanosis, clubbing, or pedal edema. -NEUROLOGICAL: Alert and oriented x 3, minimal left sided weakness involving left upper extremity and left lower extremity but able to raise her left upper extremity and left lower extremity against gravity. SKIN: No rashes Psychiatric: Normal mood, affect and no mental status examination. Results - Laboratory Findings CBC and BMP: 09/26/24 09:51 09/26/24 09:51 PT/INR, D-dimer PT 11.4 sec (10.0-12.5) 09/26/24 09:51 INR 1.0 (<1.2) 09/26/24 09:51 Abnormal lab findings: Abnormal Labs 09/26/24 09/26/24 09:51 09:51 RBC 3.95 L Chloride 108 H BUN 27 H Glucose 102 H Total Protein 5.8 L - Diagnostic Findings Additional studies: CT brain and CT angiogram as noted in HPI Assessment and Plan Assessment: Impression: Acute right hemispheric CVA/ischemic infarct with left-sided weakness and facial numbness status post TNK/thrombolytic therapy. History of hypertension History of dementia, maintained on Namenda. Recommendation: Agree with admitting the patient to the ICU as per protocol MRI of the brain has been ordered Start antiplatelet therapy/aspirin 24 hours after TNK given and make sure CT negative for hemorrhage Repeat CT brain in 24 hours And in 24 hours the patient to go on dual antiplatelet therapy including aspirin and Plavix for at least 21 days. Then Plavix can be discontinued. Continue statins Monitor blood pressure, and address accordingly Will continue to follow Time with Patient: Greater than 30
[2024-09-26 14:06] LABS: Glucose,Whole Blood 106 mg/dL (70-110)
[2024-09-26] MEDS: traZODone HCL 50 MG TAB PO SCH (21:21)
[2024-09-26] MEDS: lisinopriL 20 MG TAB PO SCH (21:21)
[2024-09-27 06:11] LABS: Basophils # (A) 0.03 10*3/uL (0.00-0.10); Basophils % (A) 0.4 %; Eosinophils # (A) 0.05 10*3/uL (0.04-0.35); Eosinophils % (A) 0.6 %; HCT 41.6 % (37.2-46.3); HGB 13.4 g/dL (12.0-15.0); Lymphocytes # (A) 1.68 10*3/uL (0.90-5.00); Lymphocytes % (A) 21.1 %; MCH 30.5 pg (27.0-32.0); MCHC 32.2 g/dL (32.0-37.0); MCV 94.8 fL (80.0-97.0); Mean Platelet Volume 10.3 fL (9.5-12.2); Monocytes # (A) 0.67 10*3/uL (0.20-1.00); Monocytes % (A) 8.4 %; Neutrophils # (A) 5.51 10*3/uL (1.80-7.70); Neutrophils % (A) 69.4 %; Platelet Count 247 10*3/uL (140-440); RBC 4.39 10*6/uL (4.10-5.20); RDW 13.1 % (11.5-14.5); WBC 7.95 10*3/uL (4.50-10.00)
[2024-09-27 06:31] LABS: ALT 14 U/L (4-34); AST 21 U/L (14-36); African American GFR (CKD) >90 (>60 ml/min/1.73 sqM); Albumin 4.3 g/dL (3.5-5.0); Alkaline Phosphatase 56 U/L (38-126); Anion Gap 7 mmol/L; Blood Urea Nitrogen 17 mg/dL (7-17); Calcium 9.4 mg/dL (8.4-10.2); Carbon Dioxide 24 mmol/L (22-30); Chloride 107 mmol/L (98-107); Glucose 104 mg/dL (74-99); Magnesium 2.4 mg/dL (1.6-2.3); Non-African American GFR(CKD) 82 (>60 ml/min/1.73 sqM); Sodium 138 mmol/L (137-145); Total Bilirubin 0.8 mg/dL (0.2-1.3); Total Protein 6.3 g/dL (6.3-8.2)
[2024-09-27] MEDS ORDERED: NON FORMULARY DRUG (Omega-3/Dha/Epa/Fish Oil [Fish Oil 1,000 Mg Softgel] 1 EACH Capsule) PO SCH (09:00)
[2024-09-27] MEDS ORDERED: VITAMIN E (DL,TOCOPHERYL ACET) 400 UNIT (180 MG) CAP PO SCH (09:00)
[2024-09-27] MEDS ORDERED: ATORVASTATIN 10 MG TAB PO SCH (09:00)
--- NOTE | 2024-09-27 09:01 | CT ---
EXAMINATION TYPE: CT brain wo con DATE OF EXAM: 09/27/2024 8:45 AM COMPARISON: Prior CT Brain from one day prior CLINICAL INDICATION: Female, 79 years old with history of Neuro deficit, acute, stroke suspected, 24h rs post TPA. TECHNIQUE: Brain: Axial CT images of the brain were obtained with coronal and sagittal reformats created and rev iewed. Contrast used: None. Oral contrast used: None. CT DLP: 1039.4 mGycm, Automated exposure control for dose reduction was used. FINDINGS: Brain: Extra-axial spaces: No abnormal extra-axial fluid collections. Ventricular system: Within normal limits Cerebral parenchyma: New areas of sandoval-white matter differentiation involving the right occipital lob e No acute intraparenchymal hemorrhage or mass effect. The sandoval-white junction is well differentiate d. Cerebellum: Unremarkable. Mass effect: No evidence of midline shift. Intracranial vasculature: unremarkable Soft tissues: Normal. Calvarium/osseous structures: No depressed skull fracture. Paranasal sinuses and mastoid air cells: Mild scattered paranasal sinus disease. Visualized orbits: Orbital contents are intact. IMPRESSION: 1. New from prior loss of sandoval-white matter differentiation in the right occipital lobe concerning f or subacute ischemia. 2. No intracranial hemorrhage. [facility], , 09/27/2024 8:59 AM
[2024-09-27 09:31] LABS: Chol/HDL Ratio 2.28 Ratio; LDL Cholesterol,Calculated 69.7 mg/dL (0.0-131.0); VLDL Calculation 14.46 mg/dL (5.00-40.00)
[2024-09-27] MEDS: MEMANTINE 5 MG TAB PO SCH (09:40)
[2024-09-27] MEDS: ATORVASTATIN 20 MG TAB PO SCH (09:40)
[2024-09-27] MEDS: CYANOCOBALAMIN 500 MCG TAB PO SCH (09:40)
[2024-09-27] MEDS: MAGNESIUM OXIDE 400 MG TAB PO SCH (09:40)
[2024-09-27] MEDS: CHOLECALCIFEROL 25 MCG (1000 IU) TABLET PO SCH (09:40)
--- NOTE | 2024-09-27 12:46 | P.PN ---
Subjective Progress Note Date: 09/27/24 Principal diagnosis: Acute CVA right hemispheric with left-sided weakness status post thrombolytic therapy This is an 79-year-old female known history of hypertension, dyslipidemia, patient was brought into the ER this morning with sudden onset of left lower extremity weakness, went on to develop left facial numbness and left upper extremity weakness but she had no headache, no nausea no vomiting, she felt numbness and tingling in her left arm and her left leg. Patient was seen in the ER and she was felt to have an acute ischemic stroke. Workup was basically nondiagnostic and there was no evidence of hemorrhage or infarct on the CT of the brain. Her CT angiogram of the head and neck was negative for acute stenosis or large vessel occlusion. Patient received TNK, and as per protocol I was asked to see the patient to admit the patient to the ICU. By the time I saw the patient, she was already feeling better her weakness in the left upper extremity and left lower extremity was getting much better and her numbness in the left facial numbness was also improved. Patient has no neurological symptoms during my evaluation. WBC count 6.7 hemoglobin 12.4 electrolytes are normal renal profile is normal. Seen today on 09/27/2024, patient remains in the ICU, her neurological status seems to be a bit worse today compared to yesterday. She is developing left-sided neglect, left-sided hemiparesis/left facial droop, left upper extremity weakness which is worse today compared to yesterday and left-sided lower extremity weakness which is also worse compared to yesterday. CT of the brain this morning showed change compared to the CT of the brain yesterday, there is new from prior loss of sandoval-white matter differentiation in the right occipital lobe concerning for acute/subacute CVA. No hemorrhage. WBC count is 7.9 hemoglobin 13.4 electrolytes are normal renal profile is normal Objective - Vital Signs Vital signs: Vital Signs Temp 97.4 F L 09/27/24 08:00 Pulse 68 09/27/24 11:00 Resp 19 09/27/24 11:00 BP 139/88 09/27/24 11:00 Pulse Ox 95 09/27/24 11:00 FiO2 Intake & Output 09/26/24 09/27/24 09/27/24 18:59 06:59 18:59 Intake Total 182.5 339.166 240 Output Total 0 750 250 Balance 182.5 -410.834 -10 Weight 54.431 kg 55.2 kg Intake: Intake, IV Titration 182.5 239.166 Amount niCARdipine 20 mg In 182.5 239.166 Sodium Chloride 0.9% 192 ml @ 5 MG/HR 50 mls/hr IV .Q4H [facility] Rx#:[id number] Oral 100 240 Output: Urine 0 750 250 Other: Voiding Method External Catheter External Catheter - Exam GENERAL: Revealed a very pleasant 79-year-old female in no distress on room air not in any distress HEENT: Pupils are round and equally reacting to light. EOMI. No scleral icterus. No conjunctival pallor. Normocephalic, atraumatic. No pharyngeal erythema. No thyromegaly. CARDIOVASCULAR: Normal S1-S2, no S3 gallop. PULMONARY: Clear bilaterally no crackles rhonchi or wheezes ABDOMEN: Soft, nontender, nondistended, normoactive bowel sounds. No palpable organomegaly. MUSCULOSKELETAL: No joint swelling or deformity. EXTREMITIES: No cyanosis, clubbing, or pedal edema. -NEUROLOGICAL: Alert and oriented x 3, there is worsening left facial droop worsening left upper extremity weakness and worsening left lower extremity weakness compared to yesterday. In addition the patient seems to have left- sided neglect. SKIN: No rashes Psychiatric: Normal mood, affect and no mental status examination. - Labs CBC & Chem 7: 09/27/24 05:22 09/27/24 05:22 Labs: Abnormal Lab Results - Last 24 Hours (Table) 09/27/24 Range/Units 05:22 Glucose 104 H (74-99) mg/dL Magnesium 2.4 H (1.6-2.3) mg/dL HDL Cholesterol 65.80 H (40.00-60.00) mg/dL Assessment and Plan Assessment: Impression: Acute right hemispheric CVA/ischemic infarct with left-sided weakness and facial numbness status post TNK/thrombolytic therapy. Patient is worsening today compared to yesterday as far as her neurological findings and that is being addressed by neurology. History of hypertension History of dementia, maintained on Namenda. Recommendation: Continue to monitor in the ICU CT of the brain this morning was reviewed Start antiplatelet therapy/aspirin 24 hours after TNK given and make sure CT negative for hemorrhage Continue statins Monitor blood pressure, and address accordingly Will continue to follow Time with Patient: Less than 30
--- NOTE | 2024-09-27 14:54 | P.PN ---
Subjective Progress Note Date: 09/27/24 Principal diagnosis: Right middle cerebral artery territory stroke The patient is an 79-year-old female who was seen in neurologic follow-up on September 27, 2024, in collaboration with Bethany Awan, via teleneurology. Interim history is obtained. The patient thinks she might be doing a little bit better today. There are family members present at the bedside. The patient's and 2 daughters are present. One of the daughters reports that her mother seems to be speaking in a monotone voice. They have also noticed that their mother seems to not be seeing off to the left. The patient herself is not aware of that. Objective - Vital Signs Vital signs: Vital Signs Temp 97.7 F 09/27/24 04:00 Pulse 65 09/27/24 07:00 Resp 13 09/27/24 07:00 BP 115/64 09/27/24 07:00 Pulse Ox 95 09/27/24 07:00 FiO2 Intake & Output 09/26/24 09/27/24 09/27/24 18:59 06:59 18:59 Intake Total 182.5 339.166 Output Total 0 750 0 Balance 182.5 -410.834 0 Weight 54.431 kg 55.2 kg Intake: Intake, IV Titration 182.5 239.166 Amount niCARdipine 20 mg In 182.5 239.166 Sodium Chloride 0.9% 192 ml @ 5 MG/HR 50 mls/hr IV .Q4H [facility] Rx#:[id number] Oral 100 Output: Urine 0 750 0 Other: Voiding Method External Catheter - Exam General: The patient is well-nourished, well-developed and in no acute distress HEENT: Head is atraumatic, normocephalic. Fundus not visualized. There is no scleral icterus. Mucous membranes are moist. Neurological examination Mental status: The patient is awake, alert and oriented x 3. Speech is clear. There is no dysarthria or aphasia. Speech is monotone mood and affect is flat. Cranial nerves: Pupils are equal at 2 mm and reactive. There is a very obvious left visual field deficit. The eyes do not cross midline, to the left. There i s no obvious nystagmus. There is a left facial droop. Hearing is grossly intact. Motor: Strength is 5/5 in the right upper and lower extremities. Left upper extremity strength 3/5. Left hip flexor 0/5. Left ankle plantar and dorsi flexors 3/5. Sensory: There is left-sided extinction with double simultaneous stimulation. There is a left neglect Deep tendon reflexes: 3+/4+ in the bilateral upper extremities and 2+/4+ at the knees. - Labs CBC & Chem 7: 09/27/24 05:22 09/27/24 05:22 Labs: Abnormal Lab Results - Last 24 Hours (Table) 09/26/24 09/26/24 09/27/24 Range/Units 09:51 09:51 05:22 RBC 3.95 L (4.10-5.20) 10*6/uL Chloride 108 H (98-107) mmol/L BUN 27 H (7-17) mg/dL Glucose 102 H 104 H (74-99) mg/dL Magnesium 2.4 H (1.6-2.3) mg/dL Total Protein 5.8 L (6.3-8.2) g/dL HDL Cholesterol 65.80 H (40.00-60.00) mg/dL Assessment and Plan Assessment: 1. Acute, right middle cerebral artery territory ischemic infarct, status post TNK-neurological examination has worsened, and compared to yesterday. Repeat CT scan of the brain reports an area of ischemia involving the right occipital lobe which is per radiology report "subacute". I disagree with this. This area is part of the patient's acute right cerebral artery territory infarct. There is no reported hemorrhage. 2. History of hypertension 3. History of dementia, on Namenda Plan: 1. Stroke order set for status post TNK patient's has been entered by the primary team, including a repeat CT scan of the brain, 24 hours following TNK 2. MRI of the brain has been ordered to further evaluate for ischemia 3. Antiplatelet agents should not be started, including aspirin, until 24 hours after TNK and head CT negative for hemorrhage 4. After 24 hours, the patient should be on dual antiplatelet therapy consisting of aspirin 81 mg and Plavix 75 mg daily, for 21 days, thereafter the patient should be continued on Plavix 5. High intensity statin should be initiated 6. Monitor for signs of depression, as the patient is already very tearful and depression is, and right hemispheric strokes-Zoloft was started. Desyrel was discontinued. 7. Patient is neurologically stable for transfer to the neurology unit, with telemetry 8. Dr. Israel will assume neurologic coverage of this patient as of September 28, 2024 Thank you for allowing us to participate in care of this patient Time with Patient: Greater than 30 (40 minutes were spent caring for this patient today including, obtaining an interim history, examining the patient, reviewing imaging, chart documentation, labs, placing orders and creating this note)
[2024-09-27] MEDS: SERTRALINE 25 MG TAB PO SCH (16:19)
[2024-09-27] MEDS: CLOPIDOGREL 75 MG TAB PO SCH (16:19)
[2024-09-27] MEDS: ASPIRIN 81 MG PO SCH (16:19)
--- NOTE | 2024-09-28 06:17 | P.PN ---
Subjective 09/27 Patient awake alert still complaining from severe left-sided hemiplegia including left arm and left leg she can barely move them of the bed. No pain. No fever or chills. Hemodynamically stable. There is mild permissive hypertension Labs look stable as well She is currently placed on aspirin and Plavix. Neurology team following closely with plan for MRI of the brain is ordered. Echocardiogram is also pending.. Active Medications Generic Name Dose Route Start Last Admin Trade Name Freq PRN Reason Stop Dose Admin Aspirin 81 mg 09/27/24 15:00 09/27/24 16:19 Aspirin 81 Mg PO 81 mg DAILY GIANNA Administration Atorvastatin Calcium 20 mg 09/27/24 09:00 09/27/24 09:40 Atorvastatin 20 Mg Tab PO 20 mg DAILY GIANNA Administration Cholecalciferol 50 mcg 09/27/24 09:00 09/27/24 09:40 Cholecalciferol 25 Mcg (1000 Iu) Tablet PO 50 mcg DAILY GIANNA Administration Clopidogrel Bisulfate 75 mg 09/27/24 15:00 09/27/24 16:19 Clopidogrel 75 Mg Tab PO 75 mg DAILY GIANNA Administration Cyanocobalamin 1,000 mcg 09/27/24 09:00 09/27/24 09:40 Cyanocobalamin 500 Mcg Tab PO 1,000 mcg DAILY GIANNA Administration Nicardipine HCl 20 mg/ Sodium 200 mls @ 50 mls/hr 09/26/24 11:30 09/27/24 23:03 Chloride IV Not Given .Q4H GIANNA 5 MG/HR Lisinopril 20 mg 09/26/24 21:00 09/27/24 21:43 Lisinopril 20 Mg Tab PO 20 mg BID GIANNA Administration Magnesium Oxide 400 mg 09/27/24 09:00 09/27/24 09:40 Magnesium Oxide 400 Mg Tab PO 400 mg DAILY GIANNA Administration Memantine 5 mg 09/27/24 09:00 09/27/24 09:40 Memantine 5 Mg Tab PO 5 mg DAILY GIANNA Administration Sertraline HCl 25 mg 09/27/24 12:30 09/27/24 16:19 Sertraline 25 Mg Tab PO 25 mg DAILY GIANNA Administration Objective - Vital Signs Vital signs: Vital Signs Temp 98.4 F 09/27/24 20:00 Pulse 87 09/27/24 20:00 Resp 16 09/27/24 20:00 BP 166/81 09/27/24 20:00 Pulse Ox 96 09/27/24 20:00 FiO2 Intake & Output 09/27/24 09/27/24 09/28/24 06:59 18:59 06:59 Intake Total 339.166 358 120 Output Total 750 500 400 Balance -410.834 -142 -280 Weight 55.2 kg Intake: Intake, IV Titration 239.166 Amount niCARdipine 20 mg In 239.166 Sodium Chloride 0.9% 192 ml @ 5 MG/HR 50 mls/hr IV .Q4H [facility] Rx#:[id number] Oral 100 358 120 Output: Urine 750 500 400 Other: Voiding Method External Catheter External Catheter - Exam GENERAL: The patient is alert and oriented x3, not in any acute distress. Well developed, well nourished. HEENT: Pupils are round and equally reacting to light. EOMI. No scleral icterus. No conjunctival pallor. Normocephalic, atraumatic. No pharyngeal erythema. No thyromegaly. CARDIOVASCULAR: S1 and S2 present. No murmurs, rubs, or gallops. PULMONARY: Chest is clear to auscultation, no wheezing , no crackles. ABDOMEN: Soft, nontender, nondistended, normoactive bowel sounds. No palpable organomegaly. MUSCULOSKELETAL: No joint swelling or deformity. EXTREMITIES: No cyanosis, clubbing, or pedal edema. -NEUROLOGICAL: Mild left facial droop. Rest of cranial nerves are grossly intact. Severe left hemiplegia. Meningeal signs absent SKIN: No rashes. no petechiae. - Labs CBC & Chem 7: 09/27/24 05:22 09/27/24 05:22 Labs: Abnormal Lab Results - Last 24 Hours (Table) 09/27/24 Range/Units 05:22 Glucose 104 H (74-99) mg/dL Magnesium 2.4 H (1.6-2.3) mg/dL HDL Cholesterol 65.80 H (40.00-60.00) mg/dL Assessment and Plan Assessment: Acute stroke with acute left hemiparesis and left facial droop s/p tPA, Permissive hypertension Depression Dementia vitamin B12 deficiency Plan: Continue with Lipitor Resume aspirin and Plavix after 24 hours from receiving tPA Can be transferred out of the ICU to select unit Follow-up MRI of the brain Follow-up echocardiogram Neurology team consult and critical care team consult Continue with labetalol. Labs and medication were reviewed.. Continue same treatment. Continue with symptomatic treatment. Resume home medication. Monitor labs and vitals. DVT and GI prophylaxis. Further recommendations as per clinical course of the patient DVT prophylaxis: Mechanical GI Prophylaxis: Pepcid PT/OT: Pending Prognosis is guarded
[2024-09-28] MEDS: MULTIVITAMINS, THERA 1 EACH TAB PO SCH (11:50)
[2024-09-28] MEDS: FOLIC ACID 1 MG TAB PO SCH (11:50)
--- NOTE | 2024-09-28 13:20 | CA ---
Transthoracic Echo Report Name: Juliette Keita Age: 79 Gender: F : 1945 Exam Date: 09/28/2024 10:29 Exam Location: [facility] Ht (in): 64 Wt (lb): 120 Ordering Physician: Rafal Mckeon DO Attending/Referring Phys: Loan Services Professional Margarita Sanz RDCS Procedure CPT: Indications: Thrombus Cardiac Hx: Technical Quality: Technically difficult study Contrast 1: Total Dose (mL): Contrast 2: Total Dose (mL): MEASUREMENTS (Male / Female) Normal Values 2D ECHO LV Diastolic Diameter PLAX 4.5 cm 4.2 - 5.9 / 3.9 - 5.3 cm LV Systolic Diameter PLAX 2.9 cm IVS Diastolic Thickness 1.0 cm 0.6 - 1.0 / 0.6 - 0.9 cm LVPW Diastolic Thickness 0.9 cm 0.6 - 1.0 / 0.6 - 0.9 cm LV Relative Wall Thickness 0.4 LVOT Diameter 2.0 cm Aortic Root Diameter 2.8 cm LV Diastolic Volume MOD BP 63.2 cm??? 67 - 155 / 56 - 104 cm??? LV Systolic Volume MOD BP 22.7 cm??? 22 - 58 / 19 - 49 cm??? LV Ejection Fraction MOD BP 64.0 % >= 55 % LV Cardiac Index MOD BP 2140.6 cm???/min???m??? LV Diastolic Volume MOD 4C 70.3 cm??? LV Systolic Volume MOD 4C 25.2 cm??? LV Ejection Fraction MOD 4C 64.1 % LV Cardiac Index MOD 4C 2385.7 cm???/min???m??? LV Diastolic Length 4C 7.2 cm LV Systolic Length 4C 5.0 cm LV Diastolic Volume MOD 2C 51.6 cm??? LV Systolic Volume MOD 2C 19.5 cm??? LV Ejection Fraction MOD 2C 62.2 % LV Cardiac Index MOD 2C 1699.9 cm???/min???m??? LV Diastolic Length 2C 6.5 cm LV Systolic Length 2C 4.8 cm Ascending Aorta Diameter 3.3 cm DOPPLER AV Peak Velocity 139.6 cm/s AV Peak Gradient 7.8 mmHg AV Mean Velocity 86.5 cm/s AV Mean Gradient 3.5 mmHg AV Velocity Time Integral 23.5 cm LVOT Peak Velocity 110.1 cm/s LVOT Peak Gradient 4.9 mmHg LVOT Velocity Time Integral 18.5 cm LVOT Stroke Volume 58.9 cm??? LVOT Stroke Volume Index 37.4 ml/m??? LVOT Cardiac Index 3123.1 cm???/min???m??? AV Area Cont Eq vti 2.5 cm??? AV Area Cont Eq pk 2.5 cm??? Mitral E Point Velocity 58.2 cm/s Mitral A Point Velocity 81.6 cm/s Mitral E to A Ratio 0.7 MV Deceleration Time 155.0 ms MV E' Velocity 2.5 cm/s Mitral E to MV E' Ratio 22.9 TR Peak Velocity 263.3 cm/s TR Peak Gradient 27.7 mmHg Right Atrial Pressure 5.0 mmHg Pulmonary Artery Systolic Pressu 32.7 mmHg Right Ventricular Systolic Press 32.7 mmHg PV Peak Velocity 73.2 cm/s PV Peak Gradient 2.1 mmHg FINDINGS Left Ventricle Left ventricular ejection fraction is estimated at 55-60 %. Left ventricular cavity size normal. Left ventricular wall thickness normal. No obvious regional wall motion abnormalities. Right Ventricle Normal right ventricular size and function. Right ventricular systolic pressure within normal limits. Right Atrium Normal right atrial size. Left Atrium Normal left atrial size. Mitral Valve Mitral valve thickened. No mitral stenosis, regurgitation or prolapse. Aortic Valve Trileaflet aortic valve. Aortic valve sclerosis. No aortic valve stenosis or regurgitation. Tricuspid Valve Structurally normal tricuspid valve. No tricuspid stenosis. Mild tricuspid regurgitation. Pulmonic Valve Structurally normal pulmonic valve. No pulmonic stenosis. No pulmonic regurgitation. Pericardium Small/minimal anterior pericardial effusion. Aorta Normal size aortic root and proximal ascending aorta. CONCLUSIONS Left ventricular ejection fraction 55 to 60% RVSP 32 Suspect regurgitation Previewed by: Dr. Greyson Corado DO (Electronically Signed) Final Date: 28 September 2024 13:19
--- NOTE | 2024-09-28 14:56 | P.PN ---
Subjective Progress Note Date: 09/28/24 I am seeing the patient for the first time during this hospital admission. Please refer to Dr. Polanco's notes for further details. The patient has left sided significant weakness and felt acute right MCA stroke and received TNK. Repeat CT head showed ischemia in right occipital but Dr. Polanco feels it is more acute right cerebral territory infarct. Patient states she was not on ASA prior to this hospital admission. Objective - Vital Signs Vital signs: Vital Signs Temp 97.9 F 09/28/24 08:16 Pulse 81 09/28/24 11:57 Resp 17 09/28/24 11:57 BP 155/81 09/28/24 11:57 Pulse Ox 97 09/28/24 11:57 FiO2 Intake & Output 09/27/24 09/28/24 09/28/24 18:59 06:59 18:59 Intake Total 358 130 20 Output Total 500 400 Balance -142 -270 20 Weight 55.5 kg Intake: IV 10 20 Invasive Line 1 10 20 Oral 358 120 Output: Urine 500 400 Other: Voiding Method External Catheter External Catheter External Catheter - Exam General: Lying in bed and is not in acute distress. Neuro: The patient is awake, alert, oriented to self, place, correctly stated current year but stated it was November. No aphasia. Has preference to the right. The pupils are round, 4mm and reactive to light. Visual camacho are full to confrontation. Has left lower facial weakness. No dysarthria. Motor: Right is 5/5 while left is 0/5. Some of the work-up during this hospital visit consisted of: Lipid panel: TG 72, cholestrol 150, LDL [address] head: New from prior loss of sandoval-white matter ifferentation in the right occipital lobe concerning for subacute ischemia. CTA head and neck: No evidence of dissection of cervical internal carotid arteries or vertebral arteries. No any evidence of significant stenosis at the carotid bifurcation. No evidence of intracranial high grade stenosis or intracranial aneurysm. 2D echo: Left ventricular EF 55-60% Suspect regurgitation - Labs CBC & Chem 7: 09/27/24 05:22 09/27/24 05:22 Assessment and Plan Assessment: Likely right MCA stroke (has hemiplegia over the left, left facial droop, has right gaze preference) post TNK. Suspect regurgitation on 2D echo History of hypertension History of dementia and is on Namenda Plan: Pending MRI Brain Patient is on ASA 81mg daily and Plavix 75mg daily. Recommend dual antiplateletes and after 21 days, stop Plavix but continue ASA indefinitely. Is on Lipitor 20mg daily Continue neuro checks. Continue cardiac monitoring. Recommend 30 days event monitor Recommend patient to be evaluated by sales operations analyst and can be considered as outpatient for suspected regurgitation on 2D echo PT, OT and REFRIGERATING ENGINEER are consulted. IPR is consulted and she would be a great candidate for rehab. Will defer the rest of medical management to primary team and other specialist. For DVT prophylaxis: On subq heparin. The plan is discussed with primary team N.P. Time with Patient: Less than 30
--- NOTE | 2024-09-28 16:39 | P.PN ---
Subjective Progress Note Date: 09/28/24 This is an 79-year-old female known history of hypertension, dyslipidemia, patient was brought into the ER this morning with sudden onset of left lower extremity weakness, went on to develop left facial numbness and left upper extremity weakness but she had no headache, no nausea no vomiting, she felt num bness and tingling in her left arm and her left leg. Patient was seen in the ER and she was felt to have an acute ischemic stroke. Workup was basically nondiagnostic and there was no evidence of hemorrhage or infarct on the CT of the brain. Her CT angiogram of the head and neck was negative for acute stenosis or large vessel occlusion. Patient received TNK, and as per protocol I was asked to see the patient to admit the patient to the ICU. By the time I saw the patient, she was already feeling better her weakness in the left upper extremity and left lower extremity was getting much better and her numbness in the left facial numbness was also improved. Patient has no neurological sympto ms during my evaluation. WBC count 6.7 hemoglobin 12.4 electrolytes are normal renal profile is normal. Seen today on 09/27/2024, patient remains in the ICU, her neurological status seems to be a bit worse today compared to yesterday. She is developing left- sided neglect, left-sided hemiparesis/left facial droop, left upper extremity weakness which is worse today compared to yesterday and left-sided lower extremity weakness which is also worse compared to yesterday. CT of the brain this morning showed change compared to the CT of the brain yesterday, there is new from prior loss of sandoval-white matter differentiation in the right occipital lobe concerning for acute/subacute CVA. No hemorrhage. WBC count is 7.9 hemoglobin 13.4 electrolytes are normal renal profile is normal The patient is seen today September 28, 2024 in follow-up on the selective care unit. She is currently resting in bed. Awake and alert in no acute distress. Maintaining good O2 saturations in the 90s. She has been afebrile. Hemodynamically stable. She remains with significant left-sided weakness secondary to an acute right MCA stroke, status post TNK. Repeat CT scan of the head showed ischemia in the right occipital versus right cerebral territory infarct. Neurology is following. Echocardiogram revealed preserved left ventricular systolic function with ejection fraction 55 to 60%. No significant valvular heart disease. No new labs today. She is continued on aspirin and Plavix. Heparin for DVT prophylaxis. Objective - Vital Signs Vital signs: Vital Signs Temp 97.9 F 09/28/24 08:16 Pulse 77 09/28/24 15:42 Resp 16 09/28/24 15:42 BP 156/84 09/28/24 15:42 Pulse Ox 97 09/28/24 15:42 FiO2 Intake & Output 09/27/24 09/28/24 09/28/24 18:59 06:59 18:59 Intake Total 358 130 20 Output Total 500 400 Balance -142 -270 20 Weight 55.5 kg Intake: IV 10 20 Invasive Line 1 10 20 Oral 358 120 Output: Urine 500 400 Other: Voiding Method External Catheter External Catheter External Catheter - Exam GENERAL EXAM: Alert, pleasant 79-year-old female, on room air oxygen, comfortable in no apparent distress. HEAD: Normocephalic. Left facial droop. Has preference to the right EYES: Normal reaction of pupils, equal size. NOSE: Clear with pink turbinates. THROAT: No erythema or exudates. NECK: No masses, no JVD. CHEST: No chest wall deformity. LUNGS: Equal air entry with no crackles, wheeze, rhonchi or dullness. CVS: S1 and S2 normal with no audible murmur, regular rhythm. ABDOMEN: No hepatosplenomegaly, normal bowel sounds, no guarding or rigidity. SPINE: No scoliosis or deformity SKIN: No rashes CENTRAL NERVOUS SYSTEM: Left side hemiparesis, tone is normal in all 4 extremities. EXTREMITIES: There is no peripheral edema. No clubbing, no cyanosis. Peripheral pulses are intact. - Labs CBC & Chem 7: 09/27/24 05:22 09/27/24 05:22 Assessment and Plan Assessment: Acute right hemispheric CVA/ischemic infarct with left-sided weakness and facial numbness status post TNK/thrombolytic therapy. Remains with significant left-s ided weakness and facial droop History of hypertension History of dementia, maintained on Namenda Plan: The patient was seen and evaluated Currently stable on room air oxygen Recent labs and medications reviewed Imaging reviewed Neurology notes reviewed Remains with left-sided weakness Continued on aspirin and Plavix Plan may be for inpatient rehab at discharge Case management working on discharge planning I have personally seen and examined the patient, performed the documentation and the assessment and plan as written. Number of minutes spent on the visit: 10 Dictation was produced using [employer] dictation software. Please excuse any grammatical, word or spelling errors.
[2024-09-28] MEDS: THIAMINE 100 MG TAB PO SCH (17:51)
[2024-09-28] MEDS: HEPARIN SODIUM,PORCINE 5,000 UNIT/ML 1 ML VIAL SQ SCH (20:40)
--- NOTE | 2024-09-29 00:36 | PN ---
PROGRESS NOTE DATE OF SERVICE: 09/28/2024 SUBJECTIVE: This 79-year-old woman, was admitted with severe left-sided hemiplegia, is basically aphasic also. The patient has some swallowing difficulties. Speech is following the patient closely. A CT brain, which I reviewed personally, showed new areas of hamm- white differentiation in the right occipital lobe. The chest x-ray did not show any acute abnormality. PAST MEDICAL HISTORY: Reviewed. REVIEW OF SYSTEMS: Could not be taken. CURRENT MEDICATIONS: Reviewed. PHYSICAL EXAMINATION: VITAL SIGNS: Pulse is 72, blood pressure 173/86, and respirations 15. CHEST: Few scattered rhonchi. ABDOMEN: Soft. NERVOUS SYSTEM: Nonfocal. LABORATORY DATA: Noted. ASSESSMENT: 1. 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 2. Significant left hemiplegia. 3. Dysphagia. 4. Status post TNK. 5. Hypertension. 6. Hyperlipidemia. RECOMMENDATIONS AND DISCUSSION: This 79-year-old woman presented with multiple complex medical issues. We will monitor the patient closely. Continue the antiplatelet agent, Lipitor as well as Plavix. PT, OT evaluation. Speech pathology evaluation, possible ECF rehab. Guarded prognosis because of multiple complex medical issues. For further recommendations, see orders for details. MMODL / IJN: [id number] /
[2024-09-29] MEDS: PANTOPRAZOLE 40 MG TABLET PO SCH (06:57)
[2024-09-29 07:24] LABS: Basophils # (A) 0.04 10*3/uL (0.00-0.10); Basophils % (A) 0.4 %; Eosinophils # (A) 0.06 10*3/uL (0.04-0.35); Eosinophils % (A) 0.6 %; Lymphocytes # (A) 2.07 10*3/uL (0.90-5.00); Lymphocytes % (A) 19.4 %; MCH 30.8 pg (27.0-32.0); MCHC 33.3 g/dL (32.0-37.0); MCV 92.3 fL (80.0-97.0); Mean Platelet Volume 10.1 fL (9.5-12.2); Monocytes # (A) 1.01 10*3/uL (0.20-1.00); Monocytes % (A) 9.5 %; Neutrophils # (A) 7.45 10*3/uL (1.80-7.70); Neutrophils % (A) 69.8 %; Platelet Count 272 10*3/uL (140-440); RBC 4.55 10*6/uL (4.10-5.20); WBC 10.66 10*3/uL (4.50-10.00)
[2024-09-29 07:36] LABS: African American GFR (CKD) >90 (>60 ml/min/1.73 sqM); Anion Gap 10 mmol/L; Blood Urea Nitrogen 23 mg/dL (7-17); Calcium 9.4 mg/dL (8.4-10.2); Carbon Dioxide 23 mmol/L (22-30); Chloride 101 mmol/L (98-107); Glucose 114 mg/dL (74-99); Non-African American GFR(CKD) 84 (>60 ml/min/1.73 sqM); Potassium 4.1 mmol/L (3.5-5.1); Sodium 134 mmol/L (137-145)
[2024-09-29] MEDS: ASCORBIC ACID 500 MG TAB PO SCH (09:31)
--- NOTE | 2024-09-29 11:37 | P.CONS ---
History of Present Illness - Reason for Consult Consult date: 09/29/24 rehab recommendations - Chief Complaint CVA - History of Present Illness Ms Juliette Keita is an 79 y/o right handed female who lives with spouse in 2 story home with 2 steps to enter, can stay on the first floor. 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 She states she does not have much support in the area. Patient presented to [facility] on 09/26/24 with complaints of left sided weakness that started earlier in the morning. She had left leg weakness when trying to get up and walk, in EMS there was was concern for left facial and arm weakness and numbness. EKG ordered, CT head, neurology consulted. NIH stroke scale 11, CT with no evidence of acute process, CT angio head and neck negative for acute stenosis or occlusion. She received TNK. MRI brain was ordered and an echo. Patient was unable to have MRI at this time as the machine is out of s ervice. Echo with no PFO, EF 55-60%. Repeat head CT with Right cerebral ischemia. PM&R consulted for rehab recommendations. 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 She denies [place], dizziness. Reports intermittent loss of vision/vision changes since the stroke, sometimes I cant see the TV, it is only momentary before it resolves. She denies CP, SOB, and abdominal pain. She is unsure of her LBM, denies constipation. She has a purewick for urination. She reports numbness on the whole left side of her body, weakness of left arm and legs. She has no current complaints of pain. Discussed rehab options with the patient, she would like to pursue IPR, IM and case management aware. Review of Systems reviewed, as above in HPI Past Medical History Past Medical History: Hearing Disorder / Deafness, Hyperlipidemia, Hypertension Additional Past Medical History / Comment(s): hearing aides History of Any Multi-Drug Resistant Organisms: None Reported Past Surgical History: Hysterectomy Past Psychological History: No Psychological Hx Reported Smoking Status: Never smoker Past Alcohol Use History: None Reported Past Drug Use History: None Reported Medications and Allergies Home Medications Medication Instructions Recorded Confirmed Type Alendronate Sodium 70 mg PO MO 09/26/24 09/26/24 History Ascorbic Acid [Vitamin C] 1,000 mg PO DAILY 09/26/24 09/26/24 History Aspirin EC [Ecotrin Low Dose] 81 mg PO HS 09/26/24 09/26/24 History Atorvastatin [Lipitor] 10 mg PO DAILY 09/26/24 09/26/24 History Cholecalciferol (Vitamin D3) 50 mcg PO DAILY 09/26/24 09/26/24 History [Vitamin D3 (50 Mcg = 2000 Iu)] Cyanocobalamin (Vitamin B-12) 1,000 mcg PO DAILY 09/26/24 09/26/24 History [Vitamin B-12] Magnesium 250 mg PO DAILY 09/26/24 09/26/24 History Memantine [Namenda] 5 mg PO DAILY 09/26/24 09/26/24 History Naproxen Sodium [Aleve] 220 mg PO HS 09/26/24 09/26/24 History [place]-3/Dha/Epa/Fish Oil [Fish Oil 1 cap PO DAILY 09/26/24 09/26/24 History 1,000 mg Softgel] Red Yeast Rice 600 mg PO DAILY 09/26/24 09/26/24 History Rosuvastatin [Crestor] 10 mg PO DAILY 09/26/24 09/26/24 History Vitamin E (Dl,Tocopheryl Acet) 400 unit PO DAILY 09/26/24 09/26/24 History [Vitamin E (400 Iu = 180 mg)] lisinopriL [Zestril] 20 mg PO BID 09/26/24 09/26/24 History traZODone HCL [Desyrel] 50 mg PO HS 09/26/24 09/26/24 History Allergies Allergy/AdvReac Type Severity Reaction Status Date / Time No Known Allergies Allergy Verified 09/26/24 11:03 Physical Exam Vitals: Vital Signs Temp Pulse Pulse Resp BP Pulse Ox 09/29/24 08:00 98.0 F 72 18 167/88 97 09/29/24 02:53 98.3 F 78 18 162/94 95 09/29/24 02:00 175/90 09/29/24 00:00 99.1 F 79 16 190/106 96 09/28/24 20:00 98.7 F 73 18 173/90 97 09/28/24 15:42 77 16 156/84 97 09/28/24 11:57 81 17 155/81 97 Intake and Output 09/28/24 09/29/24 09/29/24 22:59 06:59 14:59 Intake Total 608 0 Output Total 500 Balance 608 -500 0 Intake: IV 10 Invasive Line 1 10 Oral 598 0 Output: Urine 500 Other: Voiding Method External Catheter External Catheter External Catheter # Voids 3 Weight 55 kg General: WDWN elderly female, laying in bed with HOB elevated, alert, NAD HEENT: head normocephalic, atraumatic; moist mucous membranes, external ears intact with hearing intact to conversational speech with hearing aids, glasses on CV: No acute cardiac distress, 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 Speech is clear, follows 3 step commands MSR: 2/4 bilateral biceps, brachioradialis, patella CN: Decreased sensation left side of the face, left tongue deviation and left nasolabial fold decreased Sensation intact to light touch Right upper and lower extremity, Decreased sensation to left side of her body Coordination: FTN and HTS impaired on the left side Psych: reports depression, calm, cooperative, flat affect Extremities: calves supple, non tender, no LE edema Skin: intact where exposed Results CBC & Chem 7: 09/29/24 06:47 09/29/24 06:47 Labs: Abnormal Lab Results - Last 24 Hours (Table) 09/29/24 09/29/24 Range/Units 06:47 06:47 WBC 10.66 H (4.50-10.00) 10*3/uL Monocytes # 1.01 H (0.20-1.00) 10*3/uL Sodium 134 L (137-145) mmol/L BUN 23 H (7-17) mg/dL Glucose 114 H (74-99) mg/dL Assessment and Plan Assessment: #Left hemiparesis secondary to acute right MCA ischemic infarct s/p TNK, nondominant -asa, statin, plavix -MRI brain- machine is currently not functional, DW IM do not need MRI to come to IPR. Repeat head CT reviewed. #Left sided paresthesias #Left Neglect #Left visual disturbance #Depression -Zoloft -09/29 patient reports her mood is going down hill since the stroke, KATIE patient adjustment to medications and she declined, KATIE patient counseling/SW services, reports she does not want to talk about it. #history of dementia -on Namenda #Vit B12 deficiency #DVT Proph -SQ heparin #Diet -Regular diet #HTN #Your medical dx and management Dispo: Patient is noted to be below baseline function, would benefit from a structured Inpatient rehabilitation stay with 3 hrs of therapy a day, 6-7 days a week with Physical Therapy, Occupational Therapy and Speech Therapy (if indicated). Patient has medical complexity requiring nursing services, close ph ysician medical management, and interdisciplinary team approach for rehab. Patient is motivated and has good social support. Patient WILL need insurance authorization. Discussed with Patient, IM team, And case Management. Patient is in agreement for submission for IPR. Patient seen and examined in collaboration with Dr Padilla. Thank you for consulting our services and allowing us to partipicate in the care of your patient.
--- NOTE | 2024-09-29 13:54 | P.PN ---
Subjective Progress Note Date: 09/29/24 This is an 79-year-old female known history of hypertension, dyslipidemia, patient was brought into the ER this morning with sudden onset of left lower extremity weakness, went on to develop left facial numbness and left upper extremity weakness but she had no headache, no nausea no vomiting, she felt num bness and tingling in her left arm and her left leg. Patient was seen in the ER and she was felt to have an acute ischemic stroke. Workup was basically nondiagnostic and there was no evidence of hemorrhage or infarct on the CT of the brain. Her CT angiogram of the head and neck was negative for acute stenosis or large vessel occlusion. Patient received TNK, and as per protocol I was asked to see the patient to admit the patient to the ICU. By the time I saw the patient, she was already feeling better her weakness in the left upper extremity and left lower extremity was getting much better and her numbness in the left facial numbness was also improved. Patient has no neurological sympto ms during my evaluation. WBC count 6.7 hemoglobin 12.4 electrolytes are normal renal profile is normal. Seen today on 09/27/2024, patient remains in the ICU, her neurological status seems to be a bit worse today compared to yesterday. She is developing left- sided neglect, left-sided hemiparesis/left facial droop, left upper extremity weakness which is worse today compared to yesterday and left-sided lower extremity weakness which is also worse compared to yesterday. CT of the brain this morning showed change compared to the CT of the brain yesterday, there is new from prior loss of sandoval-white matter differentiation in the right occipital lobe concerning for acute/subacute CVA. No hemorrhage. WBC count is 7.9 hemoglobin 13.4 electrolytes are normal renal profile is normal The patient is seen today September 28, 2024 in follow-up on the selective care unit. She is currently resting in bed. Awake and alert in no acute distress. Maintaining good O2 saturations in the 90s. She has been afebrile. Hemodynamically stable. She remains with significant left-sided weakness secondary to an acute right MCA stroke, status post TNK. Repeat CT scan of the head showed ischemia in the right occipital versus right cerebral territory infarct. Neurology is following. Echocardiogram revealed preserved left ventricular systolic function with ejection fraction 55 to 60%. No significant valvular heart disease. No new labs today. She is continued on aspirin and Plavix. Heparin for DVT prophylaxis. The patient is seen today September 29, 2024 in follow-up on the selective care unit. She is currently sitting up in bed. Awake and alert in no acute distress. Maintaining good O2 saturations in the 90s on room air oxygen. She remains afebrile. Hemodynamically stable. She does have some ability to lift her left arm off the bed not up not able to lift her left leg off the bed. White count 10.6. Hemoglobin 14.0. Platelets 272. Sodium 134. Potassium 4.1. Bicarb 23. BUN 23. Creatinine 0.65. Glucose 114. Objective - Vital Signs Vital signs: Vital Signs Temp 97.9 F 09/29/24 11:44 Pulse 79 09/29/24 11:44 Resp 20 09/29/24 11:44 BP 179/97 09/29/24 11:44 Pulse Ox 91 L 09/29/24 11:44 FiO2 Intake & Output 09/28/24 09/29/24 09/29/24 18:59 06:59 18:59 Intake Total 618 10 0 Output Total 500 600 Balance 618 490 -600 Weight 55 kg Intake: IV 20 10 Invasive Line 1 20 10 Oral 598 0 Output: Urine 500 600 Other: Voiding Method External Catheter External Catheter External Catheter # Voids 3 - Exam GENERAL EXAM: Alert, pleasant 79-year-old female, sitting up in bed, on room air oxygen, in no apparent distress. HEAD: Normocephalic. Left facial droop. Has preference to the right EYES: Normal reaction of pupils, equal size. NOSE: Clear with pink turbinates. THROAT: No erythema or exudates. NECK: No masses, no JVD. CHEST: No chest wall deformity. LUNGS: Equal air entry with no crackles, wheeze, rhonchi or dullness. CVS: S1 and S2 normal with no audible murmur, regular rhythm. ABDOMEN: No hepatosplenomegaly, normal bowel sounds, no guarding or rigidity. SPINE: No scoliosis or deformity SKIN: No rashes CENTRAL NERVOUS SYSTEM: Left side hemiparesis, tone is normal in all 4 extremi ties. EXTREMITIES: There is no peripheral edema. No clubbing, no cyanosis. Peripheral pulses are intact. - Labs CBC & Chem 7: 09/29/24 06:47 06/17/25 06:47 Labs: Abnormal Lab Results - Last 24 Hours (Table) 09/29/24 09/29/24 Range/Units 06:47 06:47 WBC 10.66 H (4.50-10.00) 10*3/uL Monocytes # 1.01 H (0.20-1.00) 10*3/uL Sodium 134 L (137-145) mmol/L BUN 23 H (7-17) mg/dL Glucose 114 H (74-99) mg/dL Assessment and Plan Assessment: Acute right hemispheric CVA/ischemic infarct with left-sided weakness and facial numbness status post TNK/thrombolytic therapy. Remains with significant left- sided weakness and facial droop History of hypertension History of dementia, maintained on Namenda Plan: The patient was seen and evaluated Currently stable on room air oxygen Labs and medications reviewed Neurology notes reviewed Remains with left-sided weakness Being accepted into inpatient rehabilitation Insurance authorization pending Continued on aspirin and Plavix We will continue to follow I have personally seen and examined the patient, performed the documentation and the assessment and plan as written. Number of minutes spent on the visit: 10 Dictation was produced using [employer] dictation software. Please excuse any grammatical, word or spelling errors.
[2024-09-29] MEDS: METOPROLOL TARTRATE 12.5 MG TAB PO SCH (16:34)
[2024-09-29 20:10] LABS: Glucose,Whole Blood 128 mg/dL (70-110)
--- NOTE | 2024-09-29 21:03 | PN ---
PROGRESS NOTE DATE OF SERVICE: 09/29/2024 SUBJECTIVE: This 79-year-old woman was admitted with right middle cerebral artery ischemic stroke and ischemic weakness on the left side. MRI is pending. PT and OT to evaluate the patient for possible IPR referral. PHYSICAL EXAMINATION: VITAL SIGNS: On exam, pulse is 79, blood pressure 179/97, and respirations 20. CHEST: Clear to auscultation. ABDOMEN: Soft. NERVOUS SYSTEM: Left hemiplegia present. MRC grade 0-1 power. LABORATORY DATA: Reviewed. ASSESSMENT: 1. 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 2. Significant left hemiplegia. 3. Dysphagia. 4. Status post TNK. 5. Hypertension. 6. Hyperlipidemia. RECOMMENDATIONS: Recommend to continue current management and antiplatelet agents. Continue with Lipitor. I would recommend to add small dose of lopressor and continue to monitor. Further recommendations to follow. [id number] / IJN: [id number] /
[2024-09-30 06:02] VITALS: RESP 16
[2024-09-30 06:16] LABS: Glucose,Whole Blood 108 mg/dL (70-110)
[2024-09-30 07:10] LABS: Basophils # (A) 0.05 10*3/uL (0.00-0.10); Basophils % (A) 0.4 %; Eosinophils # (A) 0.06 10*3/uL (0.04-0.35); Eosinophils % (A) 0.5 %; HCT 41.7 % (37.2-46.3); HGB 14.2 g/dL (12.0-15.0); Lymphocytes # (A) 1.83 10*3/uL (0.90-5.00); Lymphocytes % (A) 14.6 %; MCH 31.1 pg (27.0-32.0); MCHC 34.1 g/dL (32.0-37.0); MCV 91.2 fL (80.0-97.0); Mean Platelet Volume 10.3 fL (9.5-12.2); Monocytes # (A) 1.05 10*3/uL (0.20-1.00); Monocytes % (A) 8.4 %; Neutrophils # (A) 9.46 10*3/uL (1.80-7.70); Neutrophils % (A) 75.7 %; Platelet Count 294 10*3/uL (140-440); RBC 4.57 10*6/uL (4.10-5.20); RDW 12.4 % (11.5-14.5)
[2024-09-30 07:30] LABS: African American GFR (CKD) >90 (>60 ml/min/1.73 sqM); Anion Gap 9 mmol/L; Blood Urea Nitrogen 24 mg/dL (7-17); Calcium 9.5 mg/dL (8.4-10.2); Carbon Dioxide 24 mmol/L (22-30); Chloride 98 mmol/L (98-107); Glucose 114 mg/dL (74-99); Non-African American GFR(CKD) 85 (>60 ml/min/1.73 sqM); Potassium 4.1 mmol/L (3.5-5.1); Sodium 131 mmol/L (137-145)
[2024-09-30] MEDS: ACETAMINOPHEN TAB 325 MG TAB PO PRN (11:42)
[2024-09-30 11:56] VITALS: BP 191/95; PULSE 65; TEMP 97.3
[2024-09-30 12:01] LABS: Glucose,Whole Blood 118 mg/dL (70-110)
--- NOTE | 2024-09-30 13:32 | P.DS ---
Providers Date of admission: 09/26/24 10:19 Expected date of discharge: 09/30/24 Attending physician: Qamar Morfin MD Consults: 09/26/24 10:20 Consult Physician Urgent Consulting Provider: Giovanna Polanco Consult Reason/Comments: cva Do you want consulting provider notified?: Yes Consult Physician Urgent Consulting Provider: Randall Bob Consult Reason/Comments: cva, cc Do you want consulting provider notified?: Yes 09/28/24 09:57 Consult Physician Routine Consulting Provider: Archie King Consult Reason/Comments: Eval for IPR Do you want consulting provider notified?: Yes Primary care physician: Frandy Muro Hospital Course: Final diagnosis 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 Patient will follow-up with Dr. Muro in the outpatient setting upon discharge. Patient is to continue with close outpatient follow-up with neurology and continued medications as scheduled. Total time taken is greater than 35 minutes. Hospital course This is a 79-year-old female who was recently admitted with left-sided facial droop weakness of upper and lower extremities undergoing thorough neurological workup for CVA. Patient follows with Dr. Muro in the outpatient setting with a past medical history of deafness, hyperlipidemia, hypertension. Patient did have CT brain x 2 during this admission which shows a right occipital lobe differentiation in the white-sandoval matter concerning for subacute ischemia. No intracranial hemorrhage noted. Patient continues with significant left-sided weakness although the facial droop and talking has improved patient is quite weak and evaluated by physical therapy recommending rehab. Patient was evaluated by inpatient rehab [facility] and submitted for authorization and has received authorization. Patient is agreeable and will be going to [facility] inpatient rehab today. Please refer to other consultation notes for further HPI. Patient will need close outpatient follow-up with her primary care provider as well as neurology in the outpatient setting. Currently no reports of chest pain, shortness of breath, or palpitations. Patient is afebrile. No reports of nausea or vomiting and patient is tolerating diet. Patient will be going to [facility] inpatient rehab today. Guarded prognosis Physical exam: Gen: This is a 79-year-old female who is awake, alert and oriented x 2-3, well- developed, elderly appearing, hard of hearing HEENT: Head is atraumatic, normocephalic. Pupils equal, round. Sclerae is anicteric. NECK: Supple. No JVD. No lymphadenopathy. No thyromegaly. LUNGS: Diminished breath sounds bilaterally otherwise clear to auscultation. No wheezes or rhonchi. No intercostal retractions. HEART: S1, S2 are muffled ABDOMEN: Soft. Thin bowel sounds are present. No masses. No tenderness. EXTREMITIES: No pedal edema. No calf tenderness. Left upper extremity cutter and paster press clippings 1- 2/5 and lower extremity 2/5, right upper and lower extremity 5/5 NEUROLOGICAL: Patient is awake, alert and oriented x3. Cranial nerves 2 through 12 are grossly intact. Diffusely weak Please refer to medication reconciliation sheet for a list of medications. The impression and plan of care has been dictated by Laxmi Herr, Nurse Practitioner as directed. Dr. Stalin MD I have performed a history and examination and MDM of this patient, discussed the same with the dictator, and agree with the dictator's assessment and plan as written ,documented as a scribe. Based on total visit time, I have performed more than 50% of the visit. Patient Condition at Discharge: Fair Plan - Discharge Summary Discharge Rx Participant: Yes New Discharge Prescriptions: New Heparin Sodium,Porcine (1 ml) [Heparin Sodium] 5,000 unit SQ Q12HR each Atorvastatin [Lipitor] 20 mg PO DAILY tab Metoprolol Tartrate [Lopressor] 12.5 mg PO BID tab Multivitamins, Thera [Multivitamin (formulary)] 1 each PO DAILY@1200 tab Clopidogrel [Plavix] 75 mg PO DAILY tab Acetaminophen Tab [Tylenol] 650 mg PO Q6HR PRN tab PRN Reason: Mild Pain Or Fever > 100.5 Sertraline [Zoloft] 25 mg PO DAILY tab Folic Acid 1 mg PO DAILY@1200 tab Pantoprazole [Protonix] 40 mg PO AC-BRKFST tab Thiamine [Vitamin B-1] 100 mg PO BID-W/MEALS tab Continue Aspirin EC [Ecotrin Low Dose] 81 mg PO HS Red Yeast Rice 600 mg PO DAILY Magnesium 250 mg PO DAILY Ascorbic Acid [Vitamin C] 1,000 mg PO DAILY Vitamin E (Dl,Tocopheryl Acet) [Vitamin E (400 Iu = 180 mg)] 400 unit PO DAILY Memantine [Namenda] 5 mg PO DAILY lisinopriL [Zestril] 20 mg PO BID Alendronate Sodium 70 mg PO MO [place]-3/Dha/Epa/Fish Oil [Fish Oil 1,000 mg Softgel] 1 cap PO DAILY Cyanocobalamin (Vitamin B-12) [Vitamin B-12] 1,000 mcg PO DAILY Cholecalciferol (Vitamin D3) [Vitamin D3 (50 Mcg = 2000 Iu)] 50 mcg PO DAILY traZODone HCL [Desyrel] 50 mg PO HS Discontinued Naproxen Sodium [Aleve] 220 mg PO HS Rosuvastatin [Crestor] 10 mg PO DAILY Atorvastatin [Lipitor] 10 mg PO DAILY Discharge Medication List Alendronate Sodium 70 mg PO MO 09/26/24 [History] Ascorbic Acid [Vitamin C] 1,000 mg PO DAILY 09/26/24 [History] Aspirin EC [Ecotrin Low Dose] 81 mg PO HS 09/26/24 [History] Cholecalciferol (Vitamin D3) [Vitamin D3 (50 Mcg = 2000 Iu)] 50 mcg PO DAILY 09/26/24 [History] Cyanocobalamin (Vitamin B-12) [Vitamin B-12] 1,000 mcg PO DAILY 09/26/24 [History] Magnesium 250 mg PO DAILY 09/26/24 [History] Memantine [Namenda] 5 mg PO DAILY 09/26/24 [History] [place]-3/Dha/Epa/Fish Oil [Fish Oil 1,000 mg Softgel] 1 cap PO DAILY 09/26/24 [History] Red Yeast Rice 600 mg PO DAILY 09/26/24 [History] Vitamin E (Dl,Tocopheryl Acet) [Vitamin E (400 Iu = 180 mg)] 400 unit PO DAILY 09/26/24 [History] lisinopriL [Zestril] 20 mg PO BID 09/26/24 [History] traZODone HCL [Desyrel] 50 mg PO HS 09/26/24 [History] Acetaminophen Tab [Tylenol] 650 mg PO Q6HR PRN tab 09/30/24 [Rx] Atorvastatin [Lipitor] 20 mg PO DAILY tab 09/30/24 [Rx] Clopidogrel [Plavix] 75 mg PO DAILY tab 09/30/24 [Rx] Folic Acid 1 mg PO DAILY@1200 tab 09/30/24 [Rx] Heparin Sodium,Porcine (1 ml) [Heparin Sodium] 5,000 unit SQ Q12HR each 09/30/24 [Rx] Metoprolol Tartrate [Lopressor] 12.5 mg PO BID tab 09/30/24 [Rx] Multivitamins, Thera [Multivitamin (formulary)] 1 each PO DAILY@1200 tab 09/30/24 [Rx] Pantoprazole [Protonix] 40 mg PO AC-BRKFST tab 09/30/24 [Rx] Sertraline [Zoloft] 25 mg PO DAILY tab 09/30/24 [Rx] Thiamine [Vitamin B-1] 100 mg PO BID-W/MEALS tab 09/30/24 [Rx] Follow up Appointment(s)/Referral(s): Frandy Muro MD [Primary Care Provider] - 1-2 days Shamika San MD [REFERRING] - 1 Week Activity/Diet/Wound Care/Special Instructions: Patient is going to [facility] Inpatient rehab post CVA activity as tolerated continue current medications follow up with pcp on discharge follow up with neurology on discharge Discharge Disposition: TRANSFER TO SNF/ECF
--- NOTE | 2024-09-30 15:08 | P.PN ---
Subjective Progress Note Date: 09/30/24 This is an 79-year-old female known history of hypertension, dyslipidemia, patient was brought into the ER this morning with sudden onset of left lower extremity weakness, went on to develop left facial numbness and left upper extremity weakness but she had no headache, no nausea no vomiting, she felt num bness and tingling in her left arm and her left leg. Patient was seen in the ER and she was felt to have an acute ischemic stroke. Workup was basically nondiagnostic and there was no evidence of hemorrhage or infarct on the CT of the brain. Her CT angiogram of the head and neck was negative for acute stenosis or large vessel occlusion. Patient received TNK, and as per protocol I was asked to see the patient to admit the patient to the ICU. By the time I saw the patient, she was already feeling better her weakness in the left upper extremity and left lower extremity was getting much better and her numbness in the left facial numbness was also improved. Patient has no neurological sympto ms during my evaluation. WBC count 6.7 hemoglobin 12.4 electrolytes are normal renal profile is normal. Seen today on 09/27/2024, patient remains in the ICU, her neurological status seems to be a bit worse today compared to yesterday. She is developing left- sided neglect, left-sided hemiparesis/left facial droop, left upper extremity weakness which is worse today compared to yesterday and left-sided lower extremity weakness which is also worse compared to yesterday. CT of the brain this morning showed change compared to the CT of the brain yesterday, there is new from prior loss of sandoval-white matter differentiation in the right occipital lobe concerning for acute/subacute CVA. No hemorrhage. WBC count is 7.9 hemoglobin 13.4 electrolytes are normal renal profile is normal The patient is seen today September 28, 2024 in follow-up on the selective care unit. She is currently resting in bed. Awake and alert in no acute distress. Maintaining good O2 saturations in the 90s. She has been afebrile. Hemodynamically stable. She remains with significant left-sided weakness secondary to an acute right MCA stroke, status post TNK. Repeat CT scan of the head showed ischemia in the right occipital versus right cerebral territory infarct. Neurology is following. Echocardiogram revealed preserved left ventricular systolic function with ejection fraction 55 to 60%. No significant valvular heart disease. No new labs today. She is continued on aspirin and Plavix. Heparin for DVT prophylaxis. The patient is seen today September 29, 2024 in follow-up on the selective care unit. She is currently sitting up in bed. Awake and alert in no acute distress. Maintaining good O2 saturations in the 90s on room air oxygen. She remains afebrile. Hemodynamically stable. She does have some ability to lift her left arm off the bed not up not able to lift her left leg off the bed. White count 10.6. Hemoglobin 14.0. Platelets 272. Sodium 134. Potassium 4.1. Bicarb 23. BUN 23. Creatinine 0.65. Glucose 114. The patient is seen today September 30, 2024 in follow-up on the selective care unit. She is currently sitting up in a chair at the bedside. Awake and alert in no acute distress. Continues with significant left-sided weakness. Left-sided neglect. and daughter are at the bedside. She is maintaining good O2 saturations in the 90s on room air oxygen. She has been afebrile. Somewhat hypertensive. White count 12.5. Hemoglobin 14.2. Platelets 294. Sodium 131. Potassium 4.1. Bicarb 24. BUN 24. Creatinine 0.61. Glucose 114. She remains on aspirin and Plavix. Continued on statins. Heparin for DVT prophylaxis. Objective - Vital Signs Vital signs: Vital Signs Temp 97.3 F L 09/30/24 11:49 Pulse 65 09/30/24 11:49 Resp 16 09/30/24 11:49 BP 191/95 09/30/24 11:49 Pulse Ox 93 L 09/30/24 11:49 FiO2 Intake & Output 09/29/24 09/30/24 09/30/24 18:59 06:59 18:59 Intake Total 0 360 Output Total 600 900 Balance -600 -900 360 Weight 70.7 kg Intake: Oral 0 360 Output: Urine 600 900 Other: Voiding Method External Catheter External Catheter External Catheter - Exam GENERAL EXAM: Alert, pleasant 79-year-old female, up in a chair, on room air oxygen, in no apparent distress. HEAD: Normocephalic. Left facial droop. Has preference to the right EYES: Normal reaction of pupils, equal size. NOSE: Clear with pink turbinates. THROAT: No erythema or exudates. NECK: No masses, no JVD. CHEST: No chest wall deformity. LUNGS: Equal air entry with no crackles, wheeze, rhonchi or dullness. CVS: S1 and S2 normal with no audible murmur, regular rhythm. ABDOMEN: No hepatosplenomegaly, normal bowel sounds, no guarding or rigidity. SPINE: No scoliosis or deformity SKIN: No rashes CENTRAL NERVOUS SYSTEM: Left side hemiparesis, tone is normal in all 4 extremities. EXTREMITIES: There is no peripheral edema. No clubbing, no cyanosis. Peripheral pulses are intact. - Labs CBC & Chem 7: 09/30/24 06:41 09/30/24 06:41 Labs: Abnormal Lab Results - Last 24 Hours (Table) 09/29/24 09/30/24 09/30/24 Range/Units 20:09 06:41 06:41 WBC 12.50 H (4.50-10.00) 10*3/uL Immature Gran # 0.05 H (0.00-0.04) 10*3/uL Neutrophils # 9.46 H (1.80-7.70) 10*3/uL Monocytes # 1.05 H (0.20-1.00) 10*3/uL Sodium 131 L (137-145) mmol/L BUN 24 H (7-17) mg/dL Glucose 114 H (74-99) mg/dL POC Glucose (mg/dL) 128 H (70-110) mg/dL 09/30/24 Range/Units 11:56 WBC (4.50-10.00) 10*3/uL Immature Gran # (0.00-0.04) 10*3/uL Neutrophils # (1.80-7.70) 10*3/uL Monocytes # (0.20-1.00) 10*3/uL Sodium (137-145) mmol/L BUN (7-17) mg/dL Glucose (74-99) mg/dL POC Glucose (mg/dL) 118 H (70-110) mg/dL Assessment and Plan Assessment: Acute right hemispheric CVA/ischemic infarct with left-sided weakness and facial numbness status post TNK/thrombolytic therapy. Remains with significant left- sided weakness and facial droop History of hypertension History of dementia, maintained on Namenda Plan: The patient was seen and evaluated Currently stable on room air oxygen Sitting up in a chair today Labs and medications reviewed Remains with left-sided weakness Continue aspirin and Plavix Continue statin Plan is for inpatient rehab, possibly today I have personally seen and examined the patient, performed the documentation and the assessment and plan as written. Number of minutes spent on the visit: 10 Dictation was produced using [employer] dictation software. Please excuse any grammatical, word or spelling errors.
== END 2024-09-30 15:47 | DRG 62 ==
LOC: EC 09:24 → 2SICU 10:19 → 3SCARD 09-27 15:57
PROVIDERS: ADMIT Internal Medicine; ATTEND Internal Medicine
DX: I63.511 Cerebral infarction due to unspecified occlusion or stenosis of right middle cerebral artery (principal); F03.93 Unspecified dementia, unspecified severity, with mood disturbance; G81.94 Hemiplegia, unspecified affecting left nondominant side; R41.4 Neurologic neglect syndrome; I10 Essential (primary) hypertension; F32.A Depression, unspecified; R13.10 Dysphagia, unspecified; R29.711 NIHSS score 11; H91.90 Unspecified hearing loss, unspecified ear; E78.5 Hyperlipidemia, unspecified; H53.9 Unspecified visual disturbance; E53.8 Deficiency of other specified B group vitamins; R20.2 Paresthesia of skin; H54.7 Unspecified visual loss; R47.81 Slurred speech; R29.810 Facial weakness; Z74.09 Other reduced mobility; Z79.82 Long term (current) use of aspirin; Z79.899 Other long term (current) drug therapy
CPT/HCPCS: 36415; 70450; 70496; 70498; 71045; 80048; 80053; 80061; 82550; 83735; 85025; 85610; 85730; 93005; 93306; 96365; 96375; 99291